=== PATIENT | male | born 1950 | race Caucasian/White ===

== ENCOUNTER 2019-02-25 12:59 | Emergency (ER) | payer OTHER ==
--- OUTSIDE RECORDS SUMMARY | 2019-02-25 13:02 | XMS REPORT ---
:1950 Author Organization [facility] Address [address] [place] [address] Dr. Tamez [address] [place] [id number] Care Team Providers Name Role Phone Unavailable Unavailable Unavailable Problems This patient has no known problems. Allergies, Adverse Reactions, Alerts This patient has no known allergies or adverse reactions. Medications This patient has no known medications.
--- NOTE | 2019-02-25 13:44 | RAD REPORT ---
EXAM DESCRIPTION: Cam Single View02/25/2019 1:36 pm CLINICAL HISTORY: Shortness of breath COMPARISON: 2017 FINDINGS: 1 centimeter nodular opacity overlies the right lung base. Main lungs appear clear. The heart is normal size IMPRESSION: 1 centimeter nodular opacity overlies the right lung base probably represents calcified costal cartilage. A pulmonary nodule is less likely. It is recommended that the patient have oblique views of the chest for confirmation
--- NOTE | 2019-02-25 13:47 | RAD REPORT ---
EXAM DESCRIPTION: CT - Head Brain Wo Cont - 02/25/2019 1:27 pm CLINICAL HISTORY: Dizziness COMPARISON: 2017 TECHNIQUE: Computed axial tomography of the head was obtained. IV contrast was not requested. All CT scans are performed using dose optimization technique as appropriate and may include automated exposure control or mA/KV adjustment according to patient size. FINDINGS: An intracranial bleed is not seen . The ventricles are normal in caliber. No extra-axial fluid collection is noted. Mild low-density areas within periventricular, deep and subcortical white matter likely represent is chemic changes secondary to small vessel disease. Fluid within the sinuses/ mastoids is not seen. Increased density is present within the left posterior scalp IMPRESSION: Increased density within the left posterior scalp may be related to prior trauma or infl ammation should be correlated clinically. No acute intracranial abnormality is seen. If patient's symptoms persist MRI of the brain would be r ecommended.
[2019-02-25 14:10] LABS: Protime INR 0.89
[2019-02-25 14:12] LABS: Absolute Lymphocytes (CBC) 1.7 K/uL (0.7-4.9); Basophils % 0.5 % (0-1.3); Hematocrit 38.4 % (39.6-49.0); MPV 8.1 fL (7.6-11.3); RBC Red Blood Cell Count 4.25 M/uL (4.33-5.43)
[2019-02-25] MEDS ORDERED: DIAZEPAM 5 MG TABLET ONE (14:19)
[2019-02-25] MEDS ORDERED: MECLIZINE HCL 12.5 MG TAB ONE (14:19)
[2019-02-25 14:28] LABS: ALT/SGPT 24 U/L (12-78); AST/SGOT 13 U/L (15-37); Albumin 3.7 g/dL (3.4-5.0); Alkaline Phosphatase 61 U/L (45-117); BUN Blood Urea Nitrogen 13 mg/dL (7-18); Bicarbonate 29 mmol/L (21-32); Bilirubin Direct < 0.1 mg/dL (0-0.2); Bilirubin Total 0.4 mg/dL (0.2-1.0); Glucose Level 93 mg/dL (74-106); NT PRO-BNP 40 pg/mL (<125); Potassium 3.9 mmol/L (3.5-5.1); Protein, Total 7.5 g/dL (6.4-8.2); Sodium Level 140 mmol/L (136-145); Troponin (Emerg Dept Use Only) < 0.02 ng/mL (0.0-0.045)
[2019-02-25] MEDS ORDERED: LORazepam 2 MG/ML VIAL ONE (16:41)
--- NOTE | 2019-02-25 18:17 | RAD REPORT ---
EXAM DESCRIPTION: MRI - MRA Head Wo Cont - 02/25/2019 5:59 pm CLINICAL HISTORY: CVA, dizziness COMPARISON: CT head same date, MRI brain same date TECHNIQUE: Axial and coronal 3D [id number] image acquisition was performed. 3D rotational images were generated with source and reconstruction images reviewed. Horizontal and vertical axis rotation al views generated using MIP protocol. FINDINGS: Right vertebral artery is dominant. Distal vertebral arteries and basilar artery show no s tenosis or significant finding. Significant stenosis seen at several sites within the bilateral poste rior cerebral artery distributions. Right P1 segment of the posterior cerebral artery is absent or ve ry small. Patient has a large right posterior communicating artery. Bilateral M2/ M3 branch atheroscl erotic changes are present with luminal narrowing. There is significant atherosclerotic change in the distal anterior cerebral arteries. From skullbase determination the internal carotid artery show no significant stenosis or atherosclerotic change. No aneurysm or vascular malformation. Major venous sinuses are patent. IMPRESSION: Significant atherosclerotic changes with luminal narrowing in the peripheral branches of the anterior, middle and posterior cerebral arteries. Basilar artery and internal carotid arteries show no significant atherosclerotic change.
--- NOTE | 2019-02-25 18:20 | RAD REPORT ---
EXAM DESCRIPTION: MRI - Brain W/Wo Cont - 02/25/2019 5:59 pm CLINICAL HISTORY: Dizziness, weakness, CVA COMPARISON: CT head same date TECHNIQUE: Sagittal and axial T1-weighted images were obtained. Axial PD/heavily T2-weighted and T2- FLAIR images were obtained along with axial DWI/ADC mapping sequences. Coronal heavily T2 weighted s equence obtained. Axial and coronal post-contrast T1-weighted images were also obtained. A 20 ml Mul tihance contrast following utilized. FINDINGS: No intracranial hemorrhage, mass or acute infarction. There is no edema or shift of midli ne structures. No extra-axial fluid collections. Owens-matter/white matter junction is preserved. Sig nal voids are seen as a normal finding in the major intracranial vessels. Scattered chronic ischemic changes are seen in the cerebral white matter. Atrophy changes are minimal. Ventricles are normal. No globe or orbital content abnormality. No sella or supra sella abnormality. Post-contrast images show normal enhancement. No dural thickening. Mastoid air cells and paranasal sinuses are clear. IMPRESSION: No infarction or other acute intracranial finding. Chronic ischemic changes are present with minimal atrophy. No acute intracranial finding.
--- NOTE | 2019-02-25 18:22 | RAD REPORT ---
EXAM DESCRIPTION: MRI - MRA Neck W/Wo Cont - 02/25/2019 5:58 pm CLINICAL HISTORY: Weakness, dizziness, CVA TECHNIQUE: MR angiography of the cervical vasculature performed. Coronal imaging plane acquisition u tilized. A MultiHance contrast volume was utilized. Coronal reformatted images were generated and re viewed. Vertical axis 3D rotational projections obtained using maximum intensity projection protocol. A 20 milliliter MultiHance contrast volume was utilized. FINDINGS: Aortic arch is 3 vessel configuration. There is substantial motion through this region but no gross origins stenosis seen. Vertebral artery origin on the right is normal. Tortuosity at the le ft vertebral artery origin 11 sestamibi. No common carotid artery stenosis, dissection or acute finding seen. The bilateral internal carotid a rtery's also without dissection, stenosis or acute finding. No aneurysm or vascular malformation. Rig ht vertebral artery is dominant. No acute vertebral artery findings. IMPRESSION: Negative MRA neck examination for acute or significant finding.
--- NOTE | 2019-02-25 18:25 | ER ---
Nurse's Notes [facility] Name: Ramana Hess Age: 69 yrs Sex: Male : 1950 Arrival Date: 02/25/2019 Time: 13:01 Bed 13 Private MD: Diagnosis: Dizziness and giddiness;Other peripheral vertigo, bilateral Presentation: 02/25 13:15 Presenting complaint: states: Intermittent dizziness that began February 05. Patient ss had an episode this morning of dizziness that also made him feel off balance. Sent by [place] [facility] for evaluation and possible transfer to [facility]. Transition of care: patient was not received from another setting of care. Risk Assessment: Do you want to hurt yourself or someone else? Patient reports no desire to harm self or others. Initial Sepsis Screen: Does the patient meet any 2 criteria? No. Patient's initial sepsis screen is negative. Does the patient have a suspected source of infection? No. Patient's initial sepsis screen is negative. Care prior to arrival: None. 13:15 Method Of Arrival: Wheelchair ss 13:15 Acuity: AMNA 3 ss Historical: - Allergies: 13:41 Stadol; ss - Home Meds: 13:30 aripiprazole 10 mg Oral tab 1 tab once daily [Active]; bisoprolol-hydrochlorothiazide rb1 2.5-6.25 mg Oral tab 1 tab once daily [Active]; buspirone 10 mg Oral tab 1 tab 3 times per day [Active]; etodolac 400 mg Oral tab 1 tab BID PRN [Active]; fenofibrate 145 mg Oral 1 cap once daily [Active]; gabapentin 600 mg Oral tab 2 tab 3 times per day [Active]; Levemir 100 unit/mL subcutaneous soln 25 unit daily [Active]; lisinopril 40 mg Oral tab 1 tab once daily [Active]; metformin 1,000 mg Oral tab 1 tab 2 times per day [Active]; Movantik 25 mg Oral tab 1 tab once daily [Active]; oxycodone 20 mg Oral tab 1 tab three times a day [Active]; tizanidine 4 mg Oral tab 1 tab twice a day [Active]; trazodone 100 mg Oral tab 2 tabs nightly [Active]; venlafaxine 150 mg Oral tr24 1 tab twice a day [Active]; - PMHx: 13:41 CAD; Arthritis; Depression; High Cholesterol; TIA; Seizures; PERIPHERAL NEUROPATHY; ss Hypertension; Hyperlipidemia; Diabetes - IDDM; 13:30 CADDO; rb1 - PSHx: 13:41 Knee surgery; deviated septum; Tonsillectomy; Adenoids; Prostate CA; elbow surg; eye sx;ss - Immunization history:: Adult Immunizations up to date. - Social history:: Smoking status: Patient/guardian denies using tobacco. - Ebola Screening: : Patient denies exposure to infectious person Patient denies travel to an Ebola-affected area in the 21 days before illness onset. Screenin:30 Abuse screen: Denies threats or abuse. Nutritional screening: No deficits noted. rb1 Tuberculosis screening: No symptoms or risk factors identified. Fall Risk No fall in past 12 months (0 pts). Secondary diagnosis (15 points) impaired mobility, No IV (0 pts). Ambulatory Aid- Crutches/Cane/Walker (15 pts). Gait- Impaired (20 pts.). Mental Status- Oriented to own ability (0 pts). Total Zhao Fall Scale indicates High Risk Score (45 or more points). Fall prevention measures have been instituted. Side Rails Up X 2 Placed Close to Nursing Station 1:1 Attendant Assigned Frequent Obs/Assessments Occuring Family Present and informed to notify staff if the need to leave the bedside As available patient and family educated on Fall Prevention Program and Strategies. Assessment: 13:30 General: Appears in no apparent distress. comfortable, Behavior is calm, cooperative. rb1 Neuro: Level of Consciousness is awake, alert, obeys commands, Oriented to person, place, time, situation, Reports dizziness. Cardiovascular: Capillary refill < 3 seconds is brisk in bilateral fingers. Respiratory: Airway is patent Respiratory effort is even, unlabored, Respiratory pattern is regular, symmetrical. GI: Reports nausea. : No signs and/or symptoms were reported regarding the genitourinary system. Derm: Skin is pink, warm \T\ dry. Musculoskeletal: Range of motion: intact in all extremities, Ambulates with cane. 13:30 Pain: Denies pain. rb1 14:26 Reassessment: Patient appears in no apparent distress at this time. No changes from rb1 previously documented assessment. Family and friend at bedside. 15:00 Reassessment: Patient appears in no apparent distress at this time. Patient and/or rb1 family updated on plan of care and expected duration. Pain level reassessed. Patient is alert, oriented x 3, equal unlabored respirations, skin warm/dry/pink. gave pt. a urinal Patient denies pain at this time. 16:00 Reassessment: Patient appears in no apparent distress at this time. No changes from rb1 previously documented assessment. Family at bedside. 16:50 Reassessment: Patient appears in no apparent distress at this time. Patient and/or rb1 family updated on plan of care and expected duration. Pain level reassessed. Patient is alert, oriented x 3, equal unlabored respirations, skin warm/dry/pink. Patient denies pain at this time. 18:00 Reassessment: Pt. is off unit for testing at this time. rb1 18:50 Reassessment: Patient appears in no apparent distress at this time. Patient and/or rb1 family updated on plan of care and expected duration. Pain level reassessed. Patient is alert, oriented x 3, equal unlabored respirations, skin warm/dry/pink. at bedside. Patient denies pain at this time. Vital Signs: 13:02 BP 130 / 46; Pulse 53; Resp 14; Pulse Ox 94% on R/A; rb1 13:15 BP 125 / 52; Pulse 48; Resp 10; Pulse Ox 91% on R/A; rb1 13:41 Weight 112.94 kg; Height 6 ft. 5 in. (195.58 cm); ss 14:00 BP 126 / 61; Pulse 50; Resp 15; Temp 98.4; Pulse Ox 97% on R/A; Pain 0/10; rb1 15:00 BP 147 / 66; Pulse 49; Resp 12; Temp 98.1(O); Pulse Ox 94% on R/A; Pain 0/10; rb1 16:00 BP 129 / 84; Pulse 51; Resp 17; Temp 98.2(O); Pulse Ox 95% on R/A; Pain 0/10; rb1 17:00 rb1 18:10 BP 145 / 65; Pulse 44; Resp 13; Pulse Ox 95% on R/A; Pain 0/10; rb1 18:42 BP 155 / 68; Pulse 53; Resp 17; Pulse Ox 94% on R/A; Pain 0/10; rb1 13:41 Body Mass Index 29.53 (112.94 kg, 195.58 cm) ss 17:00 Pt. is in MRI rb1 ED Course: 13:01 Patient arrived in ED. hj 13:04 Hector Hercules MD is Attending Physician. kdr 13:04 EKG done, by entry level automotive technician. reviewed by Hector Hercules MD. sm3 13:15 Arm band placed on right wrist. ss 13:30 CT Head Brain wo Cont In Process Unspecified. EDMS 13:30 Patient has correct armband on for positive identification. Bed in low position. Call rb1 light in reach. Side rails up X2. campus monitor on. Pulse ox on. NIBP on. Warm blanket given. 13:31 X-ray completed. Patient tolerated procedure well. Patient moved to radiology via stretcher. Patient moved back from radiology. 13:33 Evelin Rowland, RN is Primary Nurse. rb1 13:36 XRAY Chest (1 view) In Process Unspecified. EDMS 13:38 Triage completed. ss 13:50 Inserted saline lock: 22 gauge in right antecubital area, using aseptic technique. rb1 Blood collected. 16:54 Patient moved to MRI via stretcher. em2 17:54 MRA Head Wo Cont In Process Unspecified. EDMS 17:54 MRA Neck W/Wo Cont In Process Unspecified. EDMS 17:55 Brain W/Wo Cont In Process Unspecified. EDMS 19:27 No provider procedures requiring assistance completed. IV discontinued, intact, rb1 bleeding controlled, No redness/swelling at site. Pressure dressing applied. Administered Medications: 14:20 Drug: Meclizine 25 mg Route: PO; rb1 14:20 Drug: Valium 5 mg Route: PO; rb1 Outcome: 18:23 Discharge ordered by . kdr 19:27 Patient left the ED. rb1 19:27 Discharged to home via wheelchair, with family. rb1 19:27 Condition: stable 19:27 Discharge instructions given to patient, Instructed on discharge instructions, follow up and referral plans. medication usage, Demonstrated understanding of instructions, follow-up care, medications, Prescriptions given X 1. Signatures: Dispatcher [employer] EDMS Hector Hercules MD MD kdr Mirian Bazan Daniela Watters RN RN Bandar Coughlin em2 Jose Baron RN RN Evelin Rowland, RN RN rb1 Naomi Coughlin sm3 Corrections: (The following items were deleted from the chart) 18:41 17:00 BP 145 / 65; Pulse 44bpm; Resp 13bpm; Pulse Ox 95% RA; Pain 0/10; rb1 rb1 18:42 18:00 BP 155 / 68; Pulse 53bpm; Resp 17bpm; Pulse Ox 94% RA; Pain 0/10; rb1 rb1 20:03 17:00 Reassessment: Patient appears in no apparent distress at this time. Patient rb1 and/or family updated on plan of care and expected duration. Pain level reassessed. Patient is alert, oriented x 3, equal unlabored respirations, skin warm/dry/pink. Patient denies pain at this time. rb1
--- NOTE | 2019-02-25 18:25 | EDPHYS ---
Physician Documentation [facility] Name: Ramana Hess Age: 69 yrs Sex: Male : 1950 Arrival Date: 02/25/2019 Time: 13:01 Bed 13 Private MD: ED Physician Hector Hercules HPI: 02/25 14:42 This 69 yrs old Male presents to ER via Wheelchair with complaints of kdr Dizziness. 14:42 The patient presents with dizziness, feeling off balance, vertigo. Onset: The kdr symptoms/episode began/occurred The patient has been having intermittent s/s for 3-4 months. Recently, it has been worse and this morning at 04:30 it worsened again. He has not had s/s this persistent or severe prior. He has had work-ups recently for possible CVA. Context: occurred at home, occurred while the patient was at rest. Modifying factors: The symptoms are alleviated by holding head still, the symptoms are aggravated by movement of head, standing up, changing position. Associated signs and symptoms: Pertinent positives: ataxia, nausea, Pertinent negatives: abdominal pain, blurred vision, confusion, focal weakness, numbness, palpitations, , seizure, shortness of breath, syncope, tingling, vomiting. Severity of symptoms: At their worst the symptoms were moderate in the emergency department the symptoms have improved mildly. Patient's baseline: Neuro: alert and fully oriented, Motor: no deficits. The patient has not experienced similar symptoms in the past, Not as bad as today. The patient has not recently seen a physician. Historical: - Allergies: 13:41 Stadol; - Home Meds: 13:30 aripiprazole 10 mg Oral tab 1 tab once daily [Active]; bisoprolol-hydrochlorothiazide rb1 2.5-6.25 mg Oral tab 1 tab once daily [Active]; buspirone 10 mg Oral tab 1 tab 3 times per day [Active]; etodolac 400 mg Oral tab 1 tab BID PRN [Active]; fenofibrate 145 mg Oral 1 cap once daily [Active]; gabapentin 600 mg Oral tab 2 tab 3 times per day [Active]; Levemir 100 unit/mL subcutaneous soln 25 unit daily [Active]; lisinopril 40 mg Oral tab 1 tab once daily [Active]; metformin 1,000 mg Oral tab 1 tab 2 times per day [Active]; Movantik 25 mg Oral tab 1 tab once daily [Active]; oxycodone 20 mg Oral tab 1 tab three times a day [Active]; tizanidine 4 mg Oral tab 1 tab twice a day [Active]; trazodone 100 mg Oral tab 2 tabs nightly [Active]; venlafaxine 150 mg Oral tr24 1 tab twice a day [Active]; - PMHx: 13:41 CAD; Arthritis; Depression; High Cholesterol; TIA; Seizures; PERIPHERAL NEUROPATHY; ss Hypertension; Hyperlipidemia; Diabetes - IDDM; 13:30 [place]; rb1 - PSHx: 13:41 Knee surgery; deviated septum; Tonsillectomy; Adenoids; Prostate CA; elbow surg; eye sx;ss - Immunization history:: Adult Immunizations up to date. - Social history:: Smoking status: Patient/guardian denies using tobacco. - Ebola Screening: : Patient denies exposure to infectious person Patient denies travel to an Ebola-affected area in the 21 days before illness onset. ROS: 14:42 Constitutional: Negative for fever, chills, and weight loss, Eyes: Negative for injury, kdr pain, redness, and discharge, ENT: Negative for injury, pain, and discharge, Neck: Negative for injury, pain, and swelling, Cardiovascular: Negative for chest pain, palpitations, and edema, Respiratory: Negative for shortness of breath, cough, wheezing, and pleuritic chest pain, Abdomen/GI: Negative for abdominal pain, nausea, vomiting, diarrhea, and constipation, Back: Negative for injury and pain, : Negative for injury, bleeding, discharge, and swelling, MS/Extremity: Negative for injury and deformity, Skin: Negative for injury, rash, and discoloration, Psych: Negative for depression, anxiety, suicide ideation, homicidal ideation, and hallucinations, Allergy/Immunology: Negative for hives, rash, and allergies, Endocrine: Negative for neck swelling, polydipsia, polyuria, polyphagia, and marked weight changes, Hematologic/Lymphatic: Negative for swollen nodes, abnormal bleeding, and unusual bruising. 14:42 Neuro: Positive for dizziness, Negative for loss of consciousness, numbness, seizure activity, speech changes, syncope, near syncope, tremor, visual changes, weakness. Exam: 14:42 Constitutional: This is a well developed, well nourished patient who is awake, alert, kdr and in no acute distress. Head/Face: Normocephalic, atraumatic. Eyes: Pupils equal round and reactive to light, extra-ocular motions intact. Lids and lashes normal. Conjunctiva and sclera are non-icteric and not injected. Cornea within normal limits. Periorbital areas with no swelling, redness, or edema. Neck: Trachea midline, no thyromegaly or masses palpated, and no cervical lymphadenopathy. Supple, full range of motion without nuchal rigidity, or vertebral point tenderness. No Meningismus. Chest/axilla: Normal chest wall appearance and motion. Nontender with no deformity. No lesions are appreciated. Cardiovascular: Regular rate and rhythm with a normal S1 and S2. No gallops, murmurs, or rubs. Normal PMI, no JVD. No pulse deficits. Respiratory: Lungs have equal breath sounds bilaterally, clear to auscultation and percussion. No rales, rhonchi or wheezes noted. No increased work of breathing, no retractions or nasal flaring. Abdomen/GI: Soft, non-tender, with normal bowel sounds. No distension or tympany. No guarding or rebound. No evidence of tenderness throughout. Back: No spinal tenderness. No costovertebral tenderness. Full range of motion. Skin: Warm, dry with normal turgor. Normal color with no rashes, no lesions, and no evidence of cellulitis. MS/ Extremity: Pulses equal, no cyanosis. Neurovascular intact. Full, normal range of motion. Psych: Awake, alert, with orientation to person, place and time. Behavior, mood, and affect are within normal limits. 14:42 Neuro: Orientation: is normal, Mentation: is normal, Memory: is normal, appropriate for stated age, Cranial nerves: is grossly normal based on the patient's age, Cerebellar function: no acute changes, Motor: is normal, Sensation: is normal. Vital Signs: 13:02 BP 130 / 46; Pulse 53; Resp 14; Pulse Ox 94% on R/A; rb1 13:15 BP 125 / 52; Pulse 48; Resp 10; Pulse Ox 91% on R/A; rb1 13:41 Weight 112.94 kg; Height 6 ft. 5 in. (195.58 cm); ss 14:00 BP 126 / 61; Pulse 50; Resp 15; Temp 98.4; Pulse Ox 97% on R/A; Pain 0/10; rb1 15:00 BP 147 / 66; Pulse 49; Resp 12; Temp 98.1(O); Pulse Ox 94% on R/A; Pain 0/10; rb1 16:00 BP 129 / 84; Pulse 51; Resp 17; Temp 98.2(O); Pulse Ox 95% on R/A; Pain 0/10; rb1 17:00 rb1 18:10 BP 145 / 65; Pulse 44; Resp 13; Pulse Ox 95% on R/A; Pain 0/10; rb1 18:42 BP 155 / 68; Pulse 53; Resp 17; Pulse Ox 94% on R/A; Pain 0/10; rb1 13:41 Body Mass Index 29.53 (112.94 kg, 195.58 cm) ss 17:00 Pt. is in MRI rb1 MDM: 14:42 Data reviewed: vital signs, nurses notes. kdr 18:23 Patient medically screened. kdr 02/25 13:08 Order name: Basic Metabolic Panel; Complete Time: 14:41 kdr 02/25 13:08 Order name: CBC with Diff; Complete Time: 14:41 kdr 02/25 13:08 Order name: LFT's; Complete Time: 14:41 kdr 02/25 13:08 Order name: Magnesium; Complete Time: 14:41 kdr 02/25 13:08 Order name: NT PRO-BNP; Complete Time: 14:41 kdr 02/25 13:08 Order name: PT-INR; Complete Time: 14:41 kdr 02/25 13:08 Order name: Troponin (emerg Dept Use Only); Complete Time: 14:41 kdr 02/25 13:08 Order name: XRAY Chest (1 view); Complete Time: 13:52 kdr 02/25 13:08 Order name: CT Head Brain wo Cont; Complete Time: 13:52 kdr 02/25 16:27 Order name: MRA Head Wo Cont; Complete Time: 18:20 EDMS 02/25 16:29 Order name: MRA Neck W/Wo Cont EDMS 02/25 16:29 Order name: Brain W/Wo Cont; Complete Time: 18:20 EDMS 02/25 13:02 Order name: EKG; Complete Time: 13:04 ss 08/06 13:02 Order name: EKG - Nurse/Tech; Complete Time: 15:50 ss 02/25 13:08 Order name: Cardiac monitoring; Complete Time: 14:03 kdr 02/25 13:08 Order name: IV Saline Lock; Complete Time: 14:03 kdr 02/25 13:08 Order name: Labs collected and sent; Complete Time: 14:03 kdr 02/25 13:08 Order name: O2 Per Protocol; Complete Time: 14:03 kdr 02/25 13:08 Order name: O2 Sat Monitoring; Complete Time: 14:03 kdr Administered Medications: 14:20 Drug: Meclizine 25 mg Route: PO; rb1 14:20 Drug: Valium 5 mg Route: PO; rb1 Disposition: 02/25/19 18:23 Discharged to Home. Impression: Dizziness and giddiness, Other peripheral vertigo, bilateral. - Condition is Stable. - Discharge Instructions: Vertigo, [id number], Dizziness, [id number]. - Prescriptions for Meclizine 25 mg Oral Tablet - take 1 tablet by ORAL route every 8 hours As needed; 30 tablet. - Medication Reconciliation Form, Thank You Letter form. - Follow up: Private Physician; When: 2 - 3 days; Reason: If symptoms return, Further diagnostic work-up, Recheck today's complaints, Continuance of care, Re-evaluation by your physician. - Problem is new. - Symptoms have improved. Signatures: Dispatcher [employer] [facility] Hector Hercules MD MD kdr Daniela Watters RN RN ss Evelin Rowland, RN RN rb1 Corrections: (The following items were deleted from the chart) 16:27 13:54 MR STROKE PROTOCOL+MRI.RAD.BRZ ordered. [facility] 19:27 18:23 02/25/2019 18:23 Discharged to Home. Impression: Dizziness and giddiness; Other rb1 peripheral vertigo, bilateral. Condition is Stable. Forms are Medication Reconciliation Form, Thank You Letter, Antibiotic Education, Prescription Opioid Use. Follow up: Private Physician; When: 2 - 3 days; Reason: If symptoms return, Further diagnostic work-up, Recheck today's complaints, Continuance of care, Re-evaluation by your physician. Problem is new. Symptoms have improved. kdr
[2019-02-25 19:39] VITALS: TEMP 98.2
[2019-02-25 19:42] VITALS: BP 155/68; O2SAT 94
--- NOTE | 2019-02-26 07:14 | EKG ---
Test Date: 2019-02-25 Test Time: 13:01:00 [employer]: HEATHER MEASUREMENT RESULTS: Intervals: Rate: 50 IA: 254 QRSD: 98 QT: 422 QTc: 384 [place]: P: 60 IA: 254 QRS: -5 T: 41 INTERPRETIVE STATEMENTS: Sinus bradycardia with 1st degree AV block Otherwise normal ECG Compared to ECG 04/04/2017 06:20:13 Sinus rhythm no longer present Left ventricular hypertrophy no longer present Electronically Signed On 02-26-19 07:13:49 CDT by Eduardo Howell
== END 2019-02-25 19:27 | disposition home or self-care (01) ==
LOC: ER 12:59
DX: H81.393 Other peripheral vertigo, bilateral (principal); I10 Essential (primary) hypertension; E78.5 Hyperlipidemia, unspecified; E11.9 Type 2 diabetes mellitus without complications; E78.00 Pure hypercholesterolemia, unspecified; F32.9 Major depressive disorder, single episode, unspecified; G40.909 Epilepsy, unspecified, not intractable, without status epilepticus; Z88.5 Allergy status to narcotic agent
CPT/HCPCS: 93005; 85025; 80048; 36415; 83735; 85610; 80076; 84484; 83880; 70450; 71045; 70553; 70544; 70549; 99285; A9577

== ENCOUNTER 2019-03-31 12:06 | Emergency (ER) | payer OTHER ==
--- OUTSIDE RECORDS SUMMARY | 2019-03-31 12:08 | XMS REPORT ---
:1950 [facility] Tamez [address] [place] [id number] Care Team Providers Name Role Phone Unavailable Unavailable Unavailable Problems This patient has no known problems. Allergies, Adverse Reactions, Alerts This patient has no known allergies or adverse reactions. Medications This patient has no known medications.
[2019-03-31] MEDS ORDERED: NA CHLORIDE 0.9% 500 ML ONE (13:15)
[2019-03-31] MEDS ORDERED: FENTANYL CITR 100 MCG/2 ML ONE (13:15)
[2019-03-31 14:06] LABS: Absolute Lymphocytes (CBC) 1.3 K/uL (0.7-4.9); Lymphocytes % 21.4 % (15.3-44.8); MPV 8.2 fL (7.6-11.3); RBC Red Blood Cell Count 4.23 M/uL (4.33-5.43)
--- NOTE | 2019-03-31 14:07 | RAD REPORT ---
EXAM DESCRIPTION: RAD - Chest Single View - 03/31/2019 1:50 pm CLINICAL HISTORY: Othrostatic hypotension Chest pain. COMPARISON: Chest Single View dated 02/25/2019; Chest Single View dated 04/04/2017; Chest Pa And Lat (2 Views) dated 10/22/2015; CHEST SINGLE VIEW dated 03/13/2014 FINDINGS: Portable technique limits examination quality. The lungs are emphysematous but grossly clear. The heart is mildly enlarged in size. No displaced fra ctures. IMPRESSION: No acute intrathoracic process suspected.
[2019-03-31 14:09] LABS: Protime INR 0.93
--- NOTE | 2019-03-31 14:14 | EDPHYS ---
Physician Documentation [facility] Name: Ramana Hess Age: 69 yrs Sex: Male : 1950 Arrival Date: 03/31/2019 Time: 12:09 Bed 26 Private MD: ED Physician Hector Hercules HPI: 03/31 16:03 This 69 yrs old Male presents to ER via Wheelchair with complaints of Low kdr Blood Pressure, Weakness. 16:04 The patient has been light headed and near syncopal for the past month but has become kdr worse in the last two weeks. He had a syncopal episode in th elast 10 days and fell injuring his buttock. He was subsequently seen in clinic and noted to be orthostatic and was take off of his BP meds. Since, he has continued to be light headed and orthostatic. He was sent to the ED for evaluation. Onset: The symptoms/episode began/occurred gradually, 2 week(s) ago. Severity of symptoms: At their worst the symptoms were mild in the emergency department the symptoms are unchanged. The patient has not experienced similar symptoms in the past. The patient has been recently seen by a physician: the patient's primary care provider, earlier today. Historical: - Allergies: 12:24 Stadol; aa5 - Home Meds: 12:51 aspirin 81 mg Oral TbEC 1 tab once daily [Active]; metformin 1,000 mg Oral tab 1 tab ca1 daily [Active]; gabapentin 600 mg Oral tab 2 tab 3 times per day [Active]; trazodone 100 mg Oral tab 2 tabs nightly [Active]; venlafaxine 25 mg oral tab 1 tab daily [Active]; losartan 50 mg oral tab 1 tab 2 times per day [Active]; amlodipine 10 mg tab 1 tab once daily [Active]; tamsulosin 0.4 mg oral cp24 1 cap once daily [Active]; atorvastatin 80 mg oral tab 1 tab once daily [Active]; - PMHx: 12:24 Arthritis; CAD; Depression; Diabetes - IDDM; High Cholesterol; [place]; Hyperlipidemia; aa5 Hypertension; PERIPHERAL NEUROPATHY; Seizures; TIA; - PSHx: 12:51 Knee surgery; deviated septum; Tonsillectomy; Adenoids; Prostate CA; elbow surg; eye sx;ca1 - Immunization history:: Flu vaccine is up to date. - Social history:: Smoking status: Patient/guardian denies using tobacco. - Ebola Screening: : No symptoms or risks identified at this time. ROS: 16:04 Constitutional: Negative for fever, chills, and weight loss - has had general weakness kdr and syncope Eyes: Negative for injury, pain, redness, and discharge, ENT: Negative for injury, pain, and discharge, Neck: Negative for injury, pain, and swelling, Cardiovascular: Negative for chest pain, palpitations, and edema, Respiratory: Negative for shortness of breath, cough, wheezing, and pleuritic chest pain, Abdomen/GI: Negative for abdominal pain, nausea, vomiting, diarrhea, and constipation, Back: Negative for injury and pain, : Negative for injury, bleeding, discharge, and swelling, MS/Extremity: Negative for injury and deformity, Skin: Negative for injury, rash, and discoloration, Psych: Negative for depression, anxiety, suicide ideation, homicidal ideation, and hallucinations, Allergy/Immunology: Negative for hives, rash, and allergies, Endocrine: Negative for neck swelling, polydipsia, polyuria, polyphagia, and marked weight changes, Hematologic/Lymphatic: Negative for swollen nodes, abnormal bleeding, and unusual bruising. 16:04 Neuro: Positive for syncope, near syncope, weakness. Exam: 16:04 Constitutional: This is a well developed, well nourished patient who is awake, alert, kdr and in no acute distress. Head/Face: Normocephalic, atraumatic. Eyes: Pupils equal round and reactive to light, extra-ocular motions intact. Lids and lashes normal. Conjunctiva and sclera are non-icteric and not injected. Cornea within normal limits. Periorbital areas with no swelling, redness, or edema. Neck: Trachea midline, no thyromegaly or masses palpated, and no cervical lymphadenopathy. Supple, full range of motion without nuchal rigidity, or vertebral point tenderness. No Meningismus. Chest/axilla: Normal chest wall appearance and motion. Nontender with no deformity. No lesions are appreciated. Cardiovascular: Regular rate and rhythm with a normal S1 and S2. No gallops, murmurs, or rubs. Normal PMI, no JVD. No pulse deficits. Respiratory: Lungs have equal breath sounds bilaterally, clear to auscultation and percussion. No rales, rhonchi or wheezes noted. No increased work of breathing, no retractions or nasal flaring. Abdomen/GI: Soft, non-tender, with normal bowel sounds. No distension or tympany. No guarding or rebound. No evidence of tenderness throughout. Back: No spinal tenderness. No costovertebral tenderness. Full range of motion. Skin: Warm, dry with normal turgor. Normal color with no rashes, no lesions, and no evidence of cellulitis. MS/ Extremity: Pulses equal, no cyanosis. Neurovascular intact. Full, normal range of motion. Psych: Awake, alert, with orientation to person, place and time. Behavior, mood, and affect are within normal limits. 16:04 Neuro: Orientation: is normal, Mentation: is normal, Memory: is normal, Cranial nerves: grossly normal, Generally weak and light headed. Vital Signs: 12:24 BP 105 / 67; Pulse 83; Resp 16 S; Temp 97.5(TE); Pulse Ox 98% on R/A; Weight 115.67 kg aa5 (R); Height 6 ft. 5 in. (195.58 cm) (R); Pain 5/10; 12:40 BP 141 / 63; Pulse 74; Resp 14 S; Pulse Ox 94% on R/A; ca1 13:06 BP 126 / 65; Pulse 63; Resp 14 S; Pulse Ox 94% on R/A; ca1 13:27 BP 125 / 64 Supine; Pulse 63; Resp 15 S; Pulse Ox 94% on R/A; ca1 13:30 BP 131 / 76 Sitting; Pulse 73; Resp 20 S; Pulse Ox 94% on R/A; ca1 13:32 BP 83 / 53 Standing; Pulse 73; Resp 20 S; Pulse Ox 94% on R/A; ca1 13:59 BP 140 / 73; Pulse 61; Resp 18 S; Pulse Ox 95% on R/A; ca1 15:00 BP 148 / 68; Pulse 60; Resp 15 S; Pulse Ox 95% on R/A; ca1 15:46 BP 131 / 78; Pulse 55; Resp 17 S; Pulse Ox 96% on R/A; ca1 12:24 Body Mass Index 30.24 (115.67 kg, 195.58 cm) aa5 MDM: 14:13 Patient medically screened. kdr 16:04 Data reviewed: vital signs, nurses notes, lab test result(s), radiologic studies. kdr Counseling: I had a detailed discussion with the patient and/or guardian regarding: the historical points, exam findings, and any diagnostic results supporting the discharge/admit diagnosis, lab results, radiology results, the need to transfer to another facility. 03/31 12:50 Order name: Basic Metabolic Panel; Complete Time: 14:56 [facility] 03/31 12:50 Order name: CBC with Diff; Complete Time: 14:56 [facility] 03/31 12:50 Order name: LFT's; Complete Time: 14:56 [facility] 03/31 12:50 Order name: Magnesium; Complete Time: 14:56 [facility] 03/31 12:50 Order name: NT PRO-BNP; Complete Time: 14:56 [facility] 03/31 12:50 Order name: PT-INR; Complete Time: 14:56 [facility] 03/31 12:50 Order name: Troponin (emerg Dept Use Only); Complete Time: 14:56 [facility] 03/31 12:50 Order name: XRAY Chest (1 view); Complete Time: 14:56 [facility] 03/31 12:50 Order name: EKG; Complete Time: 12:52 [facility] 03/31 12:50 Order name: Cardiac monitoring; Complete Time: 12:54 [facility] 03/31 12:50 Order name: EKG - Nurse/Tech; Complete Time: 13:03 [facility] 03/31 12:50 Order name: IV Saline Lock; Complete Time: 13:03 [facility] 03/31 12:50 Order name: Labs collected and sent; Complete Time: 13:03 [facility] 03/31 12:50 Order name: O2 Per Protocol; Complete Time: 12:54 [facility] 03/31 12:50 Order name: O2 Sat Monitoring; Complete Time: 12:54 [facility] 03/31 12:52 Order name: Orthostatic Blood Pressure: Do not stand patient if he is at all kdr symptomatic or w/ clear drop in BP when sitting; Complete Time: 13:37 03/31 13:33 Order name: Labs - recollect needed; Complete Time: 13:45 bd Administered Medications: 13:37 Drug: NS 0.9% 500 ml Route: IV; Rate: bolus; Site: left forearm; ca1 15:57 Follow up: Response: No adverse reaction; IV Status: Completed infusion; IV Intake: ca1 500ml 13:37 Drug: fentaNYL (PF) 25 mcg Route: IVP; Site: left forearm; ca1 14:15 Follow up: Response: No adverse reaction; Pain is decreased; RASS: Alert and Calm (0) ca1 14:16 Drug: [place] (7.5 mg-325 mg) 1 tabs Route: PO; ca1 15:57 Follow up: Response: No adverse reaction; Pain is decreased; RASS: Alert and Calm (0) ca1 Disposition: 03/31/19 14:13 Transfer ordered to [facility]. Diagnosis are Hypotension, Hypotension, unspecified, Weakness, Fracture of coccyx. - Reason for transfer: Higher level of care. - Accepting physician is RI . - Condition is Fair. - Problem is an ongoing problem. - Symptoms are unchanged. Signatures: Dispatcher [employer] EDMS Minoo Hyatt Kevin, MD MD kdr Annette Boykin RN RN aa5 Cookie Stewart RN RN ca1 Corrections: (The following items were deleted from the chart) 15:58 14:13 03/31/2019 14:13 Transfer ordered to [address] Diagnosis is Hypotension; Hypotension, unspecified; Weakness; Fracture of coccyx. Reason for transfer: Higher level of care. Accepting physician is RI . Condition is Fair. Problem is an ongoing problem. Symptoms are unchanged. kdr
--- NOTE | 2019-03-31 14:14 | ER ---
Nurse's Notes [facility] Name: Ramana Hess Age: 69 yrs Sex: Male : 1950 Arrival Date: 03/31/2019 Time: 12:09 Bed 26 Private MD: Diagnosis: Hypotension;Hypotension, unspecified;Weakness;Fracture of coccyx Presentation: 03/31 12:20 Presenting complaint: Patient states: "I went to the DC and they said my blood pressure aa5 was 100/60 but my blood pressure dropped to 70 (systolic) when I stood up". Pt states "they took me off my blood pressure medication about a week and a half ago and my blood pressure is still low". 12:20 Acuity: AMNA 3 aa5 12:45 Transition of care: patient was received from another setting of care (ambulatory [facility] primary care physician practice). Onset of symptoms was March 31, 2019. Risk Assessment: Do you want to hurt yourself or someone else?. Initial Sepsis Screen: Does the patient meet any 2 criteria? No. Patient's initial sepsis screen is negative. Does the patient have a suspected source of infection? No. Patient's initial sepsis screen is negative. Care prior to arrival: None. 12:45 Method Of Arrival: Wheelchair ca1 Historical: - Allergies: 12:24 Stadol; aa5 - Home Meds: 12:51 aspirin 81 mg Oral TbEC 1 tab once daily [Active]; metformin 1,000 mg Oral tab 1 tab ca1 daily [Active]; gabapentin 600 mg Oral tab 2 tab 3 times per day [Active]; trazodone 100 mg Oral tab 2 tabs nightly [Active]; venlafaxine 25 mg oral tab 1 tab daily [Active]; losartan 50 mg oral tab 1 tab 2 times per day [Active]; amlodipine 10 mg tab 1 tab once daily [Active]; tamsulosin 0.4 mg oral cp24 1 cap once daily [Active]; atorvastatin 80 mg oral tab 1 tab once daily [Active]; - PMHx: 12:24 Arthritis; CAD; Depression; Diabetes - IDDM; High Cholesterol; [place]; Hyperlipidemia; aa5 Hypertension; PERIPHERAL NEUROPATHY; Seizures; TIA; - PSHx: 12:51 Knee surgery; deviated septum; Tonsillectomy; Adenoids; Prostate CA; elbow surg; eye sx;ca1 - Immunization history:: Flu vaccine is up to date. - Social history:: Smoking status: Patient/guardian denies using tobacco. - Ebola Screening: : No symptoms or risks identified at this time. Screenin:44 Abuse screen: Denies threats or abuse. Denies injuries from another. Nutritional ca1 screening: No deficits noted. Tuberculosis screening: No symptoms or risk factors identified. Fall Risk Fall in past 12 months (25 points). IV access (20 points). Assessment: 12:40 General: Appears in no apparent distress. comfortable, Behavior is calm, cooperative, ca1 appropriate for age. Pain: Complains of pain in sacrum Pain does not radiate. Pain currently is 5 out of 10 on a pain scale. Pain began 2-3 days ago. Neuro: Level of Consciousness is awake, alert, obeys commands, Oriented to person, place, time, situation, Senior Financial Reporting Analyst are equal bilaterally Moves all extremities. Speech is normal, Facial symmetry appears normal, Reports dizziness. Cardiovascular: Heart tones S1 S2 present Capillary refill < 3 seconds Patient's skin is warm and dry. Pulses are all present. Rhythm is sinus rhythm. Respiratory: Airway is patent Respiratory effort is even, unlabored, Respiratory pattern is regular, symmetrical, Breath sounds are clear bilaterally. GI: Abdomen is flat, non-distended, Bowel sounds present X 4 quads. Abd is soft and non tender X 4 quads. : No deficits noted. No signs and/or symptoms were reported regarding the genitourinary system. EENT: No deficits noted. No signs and/or symptoms were reported regarding the EENT system. Derm: Skin is intact, is healthy with good turgor, Skin is pink, warm \\T\\ dry. Musculoskeletal: Circulation, motion, and sensation intact. Capillary refill < 3 seconds, Range of motion: intact in all extremities. 13:39 Reassessment: Patient appears in no apparent distress at this time. Patient and/or ca1 family updated on plan of care and expected duration. Pain level reassessed. Patient is alert, oriented x 3, equal unlabored respirations, skin warm/dry/pink. 14:30 Reassessment: Patient appears in no apparent distress at this time. Patient and/or ca1 family updated on plan of care and expected duration. Pain level reassessed. Patient is alert, oriented x 3, equal unlabored respirations, skin warm/dry/pink. 15:30 Reassessment: Patient appears in no apparent distress at this time. Patient and/or ca1 family updated on plan of care and expected duration. Pain level reassessed. Patient is alert, oriented x 3, equal unlabored respirations, skin warm/dry/pink. Called report to SAVANNA Valdez at the DC. 15:54 Reassessment: Gave report to EMS LILY Escobedo. ca1 Vital Signs: 12:24 BP 105 / 67; Pulse 83; Resp 16 S; Temp 97.5(TE); Pulse Ox 98% on R/A; Weight 115.67 kg aa5 (R); Height 6 ft. 5 in. (195.58 cm) (R); Pain 5/10; 12:40 BP 141 / 63; Pulse 74; Resp 14 S; Pulse Ox 94% on R/A; ca1 13:06 BP 126 / 65; Pulse 63; Resp 14 S; Pulse Ox 94% on R/A; ca1 13:27 BP 125 / 64 Supine; Pulse 63; Resp 15 S; Pulse Ox 94% on R/A; ca1 13:30 BP 131 / 76 Sitting; Pulse 73; Resp 20 S; Pulse Ox 94% on R/A; ca1 13:32 BP 83 / 53 Standing; Pulse 73; Resp 20 S; Pulse Ox 94% on R/A; ca1 13:59 BP 140 / 73; Pulse 61; Resp 18 S; Pulse Ox 95% on R/A; ca1 15:00 BP 148 / 68; Pulse 60; Resp 15 S; Pulse Ox 95% on R/A; ca1 15:46 BP 131 / 78; Pulse 55; Resp 17 S; Pulse Ox 96% on R/A; ca1 12:24 Body Mass Index 30.24 (115.67 kg, 195.58 cm) aa5 ED Course: 12:09 Patient arrived in ED. rg4 12:20 Hector Hercules MD is Attending Physician. kdr 12:20 Arm band placed on. aa5 12:23 Triage completed. aa5 12:26 Cookie Stewart RN is Primary Nurse. ca1 12:44 Patient has correct armband on for positive identification. Placed in gown. Bed in low ca1 position. Call light in reach. Side rails up X2. quality assurance monitor chassis on. Pulse ox on. NIBP on. Warm blanket given. 12:44 No provider procedures requiring assistance completed. ca1 13:06 Initial lab(s) drawn, by me, sent to lab. Missed attempt(s): 20 gauge in right ca1 antecubital area. Bleeding controlled, band aid applied, catheter tip intact. 13:06 EKG done, by large animal husbandry technician. reviewed by Hector Hercules MD. at1 13:22 Missed attempt(s): 20 gauge in left antecubital area. Bleeding controlled, band aid jp3 applied, catheter tip intact. 13:38 Inserted saline lock: 22 gauge in left forearm, using aseptic technique. ca1 13:48 X-ray completed. Portable x-ray completed in exam room. Patient tolerated procedure mh1 well. 13:53 XRAY Chest (1 view) In Process Unspecified. EDMS 15:55 Patient transferred, IV remains in place. ca1 Administered Medications: 13:37 Drug: NS 0.9% 500 ml Route: IV; Rate: bolus; Site: left forearm; ca1 15:57 Follow up: Response: No adverse reaction; IV Status: Completed infusion; IV Intake: ca1 500ml 13:37 Drug: fentaNYL (PF) 25 mcg Route: IVP; Site: left forearm; ca1 14:15 Follow up: Response: No adverse reaction; Pain is decreased; RASS: Alert and Calm (0) ca1 14:16 Drug: [place] (7.5 mg-325 mg) 1 tabs Route: PO; ca1 15:57 Follow up: Response: No adverse reaction; Pain is decreased; RASS: Alert and Calm (0) ca1 Intake: 15:57 IV: 500ml; Total: 500ml. ca1 Outcome: 14:13 ER care complete, transfer ordered by . kdr 15:55 Transferred by ground EMS to [facility] Transfer form completed. ca1 X-rays sent w/ patient. 15:55 Condition: stable 15:55 Instructed on the need for transfer. 15:58 Patient left the ED. ca1 Signatures: Dispatcher [employer] EDMS Hector Hercules MD MD kdr Adenike Jenkins mh1 Annette Boykin, RN RN aa5 Freya Mansfield, environmental services project manager EKG Tat1 Suzi Turner rg4 Jamey Hawk jp3 Cookie Stewart RN RN ca1 Corrections: (The following items were deleted from the chart) 12:23 12:21 Arm band placed on aa5 aa5 15:46 15:44 BP 131 / 78; Pulse 55bpm; Resp 17bpm; Spontaneous; Pulse Ox 96% RA; ca1 ca1
[2019-03-31] MEDS ORDERED: HYDROCODONE/APAP 7.5/325 MG TAB ONE (14:15)
[2019-03-31 14:21] LABS: ALT/SGPT 14 U/L (12-78); AST/SGOT 11 U/L (15-37); Albumin 3.3 g/dL (3.4-5.0); Alkaline Phosphatase 71 U/L (45-117); BUN Blood Urea Nitrogen 12 mg/dL (7-18); Bicarbonate 26 mmol/L (21-32); Bilirubin Direct 0.1 mg/dL (0-0.2); Bilirubin Total 0.3 mg/dL (0.2-1.0); Glucose Level 112 mg/dL (74-106); Magnesium 1.8 mg/dL (1.8-2.4); NT PRO-BNP 25 pg/mL (<125); Potassium 4.2 mmol/L (3.5-5.1); Protein, Total 7.6 g/dL (6.4-8.2); Sodium Level 139 mmol/L (136-145); Troponin (Emerg Dept Use Only) < 0.02 ng/mL (0.0-0.045)
--- NOTE | 2019-03-31 16:56 | EKG ---
Test Date: 2019-03-31 Test Time: 13:03:40 Fulling Machine Operator: SUNNY/S MEASUREMENT RESULTS: Intervals: Rate: 64 TX: 234 QRSD: 90 QT: 394 QTc: 406 [place]: P: 56 TX: 234 QRS: -34 T: 42 INTERPRETIVE STATEMENTS: Sinus rhythm with 1st degree AV block with premature atrial complexes Left axis deviation Minimal voltage criteria for LVH, may be normal variant Abnormal ECG Compared to ECG 02/25/2019 13:01:00 Atrial premature complex(es) now present Left-axis deviation now present Left ventricular hypertrophy now present Sinus bradycardia no longer present Electronically Signed On 03-31-19 16:55:10 CDT by Erasto Winn
[2019-03-31 18:37] VITALS: BP 131/78; O2SAT 96
[2019-03-31 18:49] VITALS: TEMP 97.5
== END 2019-03-31 15:58 ==
LOC: ER 12:06
DX: I95.9 Hypotension, unspecified (principal); S32.2XXA Fracture of coccyx, initial encounter for closed fracture; W19.XXXA Unspecified fall, initial encounter; Y93.9 Activity, unspecified; Y92.9 Unspecified place or not applicable; Z79.82 Long term (current) use of aspirin; Z85.46 Personal history of malignant neoplasm of prostate; I10 Essential (primary) hypertension; E11.9 Type 2 diabetes mellitus without complications; E78.00 Pure hypercholesterolemia, unspecified; F32.9 Major depressive disorder, single episode, unspecified; G40.909 Epilepsy, unspecified, not intractable, without status epilepticus; Z88.5 Allergy status to narcotic agent
CPT/HCPCS: 96361; 93005; 85025; 80048; 36415; 83735; 85610; 80076; 84484; 83880; 71045; 96374; 99285; J3010

== ENCOUNTER 2019-08-19 12:43 | Emergency (ER) | payer OTHER ==
--- OUTSIDE RECORDS SUMMARY | 2019-08-19 12:45 | XMS REPORT ---
:1950 [facility] Tamez [address] [place] [id number] Care Team Providers Name Role Phone Unavailable Unavailable Unavailable Problems This patient has no known problems. Allergies, Adverse Reactions, Alerts This patient has no known allergies or adverse reactions. Medications This patient has no known medications.
[2019-08-19 15:08] LABS: Absolute Lymphocytes (CBC) 1.7 K/uL (0.7-4.9); Basophils % 0.9 % (0-1.3); Hematocrit 43.2 % (39.6-49.0); Lymphocytes % 33.1 % (15.3-44.8); MPV 8.5 fL (7.6-11.3); RBC Red Blood Cell Count 4.87 M/uL (4.33-5.43)
[2019-08-19 15:10] LABS: Protime INR 0.96
--- NOTE | 2019-08-19 15:16 | RAD REPORT ---
EXAM DESCRIPTION: RAD - Chest Single View - 08/19/2019 2:59 pm CLINICAL HISTORY: COUGH, hypertension COMPARISON: Chest Single View dated 03/31/2019 TECHNIQUE: AP portable chest image was obtained 08/19/2019 2:59 pm . FINDINGS: Lungs are clear. Heart and vasculature are normal. No measurable pleural effusion and no p neumothorax. No acute bony abnormality seen. No acute aortic findings suspected. IMPRESSION: No acute cardiopulmonary process.
[2019-08-19 15:28] LABS: ALT/SGPT 22 U/L (12-78); AST/SGOT 13 U/L (15-37); Albumin 3.9 g/dL (3.4-5.0); Alkaline Phosphatase 71 U/L (45-117); BUN Blood Urea Nitrogen 11 mg/dL (7-18); Bicarbonate 32 mmol/L (21-32); Bilirubin Direct 0.2 mg/dL (0-0.2); Bilirubin Total 0.5 mg/dL (0.2-1.0); Glucose Level 113 mg/dL (74-106); Magnesium 1.9 mg/dL (1.8-2.4); NT PRO-BNP 94 pg/mL (<125); Protein, Total 7.8 g/dL (6.4-8.2); Sodium Level 138 mmol/L (136-145); Troponin (Emerg Dept Use Only) < 0.02 ng/mL (0.0-0.045)
--- NOTE | 2019-08-19 15:52 | EKG ---
Test Date: 2019-08-19 Test Time: 14:40:59 Lithograph Printer: SUNNY MEASUREMENT RESULTS: Intervals: Rate: 75 MO: 226 QRSD: 100 QT: 384 QTc: 428 [place]: P: 44 MO: 226 QRS: -34 T: 66 INTERPRETIVE STATEMENTS: Sinus rhythm with 1st degree AV block with premature atrial complexes Left axis deviation Voltage criteria for left ventricular hypertrophy Abnormal ECG Compared to ECG 03/31/2019 13:03:40 No significant changes Electronically Signed On 08-19-19 15:51:16 EXHAUST TENDER by Erasto Winn
--- NOTE | 2019-08-19 16:18 | EDPHYS ---
Physician Documentation [facility] Name: Ramana Hess Age: 69 yrs Sex: Male : 1950 Arrival Date: 08/19/2019 Time: 12:45 Bed 2 Private MD: ED Physician Berhane Joseph HPI: 08/19 16:15 This 69 yrs old Male presents to ER via Ambulatory with complaints of High fadumo Blood Pressure. 16:15 The patient has elevated blood pressure and discovered this at home. Onset: The fadumo symptoms/episode began/occurred this morning, today. Modifying factors: The symptoms are aggravated by activity, The symptoms are alleviated by remaining still. Associated signs and symptoms: The patient has no apparent associated signs or symptoms. Severity of symptoms: At its worst the blood pressure was mild, in the emergency department the blood pressure is unchanged. The patient has experienced similar episodes in the past, multiple times. Historical: - Allergies: 13:24 Stadol; ca1 - PMHx: 13:24 Arthritis; CAD; Diabetes - NIDDM; Depression; High Cholesterol; [place]; Hyperlipidemia; ca1 Hypertension; PERIPHERAL NEUROPATHY; Seizures; TIA; - PSHx: 13:24 Knee surgery; Tonsillectomy; deviated septum; eye sx; elbow surg; Prostate CA; Adenoids;ca1 - Immunization history:: Adult Immunizations up to date. - Coronavirus screen:: The patient has NOT traveled to [place], [place], or [place] in the past 14 days. The patient has NOT had contact with known/suspected case of Coronavirus?. - Social history:: Smoking status: Patient denies any tobacco usage or history of. - Family history:: not pertinent. - Ebola Screening: : Patient negative for fever greater than or equal to 101.5 degrees Fahrenheit, and additional compatible Ebola Virus Disease symptoms Patient denies exposure to infectious person Patient denies travel to an Ebola-affected area in the 21 days before illness onset No symptoms or risks identified at this time. ROS: 16:15 Constitutional: Negative for fever, chills, and weight loss, Eyes: Negative for injury, fadumo pain, redness, and discharge, ENT: Negative for injury, pain, and discharge, Neck: Negative for injury, pain, and swelling, Cardiovascular: Negative for chest pain, palpitations, and edema, Respiratory: Negative for shortness of breath, cough, wheezing, and pleuritic chest pain, Abdomen/GI: Negative for abdominal pain, nausea, vomiting, diarrhea, and constipation, Back: Negative for injury and pain, : Negative for injury, bleeding, discharge, and swelling, MS/Extremity: Negative for injury and deformity, Skin: Negative for injury, rash, and discoloration, Neuro: Negative for headache, weakness, numbness, tingling, and seizure, Psych: Negative for depression, anxiety, suicide ideation, homicidal ideation, and hallucinations, Allergy/Immunology: Negative for hives, rash, and allergies, Endocrine: Negative for neck swelling, polydipsia, polyuria, polyphagia, and marked weight changes, Hematologic/Lymphatic: Negative for swollen nodes, abnormal bleeding, and unusual bruising. Exam: 16:15 Constitutional: This is a well developed, well nourished patient who is awake, alert, fadumo and in no acute distress. Head/Face: Normocephalic, atraumatic. Eyes: Pupils equal round and reactive to light, extra-ocular motions intact. Lids and lashes normal. Conjunctiva and sclera are non-icteric and not injected. Cornea within normal limits. Periorbital areas with no swelling, redness, or edema. ENT: Nares patent. No nasal discharge, no septal abnormalities noted. Tympanic membranes are normal and external auditory canals are clear. Oropharynx with no redness, swelling, or masses, exudates, or evidence of obstruction, uvula midline. Mucous membranes moist. Neck: Trachea midline, no thyromegaly or masses palpated, and no cervical lymphadenopathy. Supple, full range of motion without nuchal rigidity, or vertebral point tenderness. No Meningismus. Chest/axilla: Normal chest wall appearance and motion. Nontender with no deformity. No lesions are appreciated. Cardiovascular: Regular rate and rhythm with a normal S1 and S2. No gallops, murmurs, or rubs. Normal PMI, no JVD. No pulse deficits. Respiratory: Lungs have equal breath sounds bilaterally, clear to auscultation and percussion. No rales, rhonchi or wheezes noted. No increased work of breathing, no retractions or nasal flaring. Abdomen/GI: Soft, non-tender, with normal bowel sounds. No distension or tympany. No guarding or rebound. No evidence of tenderness throughout. Back: No spinal tenderness. No costovertebral tenderness. Full range of motion. Male : Normal genitalia with no discharge or lesions. Skin: Warm, dry with normal turgor. Normal color with no rashes, no lesions, and no evidence of cellulitis. MS/ Extremity: Pulses equal, no cyanosis. Neurovascular intact. Full, normal range of motion. Neuro: Awake and alert, GCS 15, oriented to person, place, time, and situation. Cranial nerves II-XII grossly intact. Motor strength 5/5 in all extremities. Sensory grossly intact. Cerebellar exam normal. Normal gait. Psych: Awake, alert, with orientation to person, place and time. Behavior, mood, and affect are within normal limits. Vital Signs: 13:24 BP 150 / 83; Pulse 62; Resp 17 S; Temp 98.3(O); Pulse Ox 98% on R/A; Weight 117.93 kg ca1 (R); Height 6 ft. 5 in. (195.58 cm) (R); Pain 0/10; 15:00 BP 162 / 85; Pulse 64; Resp 13; Pulse Ox 96% ; bp 16:26 BP 162 / 82; Pulse 65; Resp 18; Temp 98; Pulse Ox 96% ; bp 13:24 Body Mass Index 30.83 (117.93 kg, 195.58 cm) ca1 MDM: 14:31 Patient medically screened. [facility] 16:16 Data reviewed: vital signs, nurses notes, EMS record, lab test result(s), EKG, [facility] radiologic studies, plain films. 08/19 14:31 Order name: Basic Metabolic Panel; Complete Time: 16:14 [facility] 08/19 14:31 Order name: CBC with Diff; Complete Time: 16:14 [facility] 08/19 14:31 Order name: LFT's; Complete Time: 16:14 [facility] 08/19 14:31 Order name: Magnesium; Complete Time: 16:14 [facility] 08/19 14:31 Order name: NT PRO-BNP; Complete Time: 16:14 [facility] 08/19 14:31 Order name: PT-INR; Complete Time: 16:14 [facility] 08/19 14:31 Order name: Troponin (emerg Dept Use Only); Complete Time: 16:14 [facility] 08/19 14:31 Order name: XRAY Chest (1 view); Complete Time: 16:14 [facility] 08/19 14:31 Order name: EKG; Complete Time: 14:32 [facility] 08/19 14:31 Order name: Cardiac monitoring; Complete Time: 15:02 [facility] 08/19 14:31 Order name: EKG - Nurse/Tech; Complete Time: 15:02 [facility] 08/19 14:31 Order name: IV Saline Lock; Complete Time: 15:02 [facility] 08/19 14:31 Order name: Labs collected and sent; Complete Time: 15:02 [facility] 08/19 14:31 Order name: O2 Per Protocol; Complete Time: 15:02 [facility] 08/19 14:31 Order name: O2 Sat Monitoring; Complete Time: 15:02 [facility] Administered Medications: 16:25 Drug: Norvasc 5 mg Route: PO; bp 16:27 Follow up: Response: No adverse reaction; Medication administered at discharge. bp Disposition: 08/19/19 16:17 Discharged to Home. Impression: Essential (primary) hypertension. - Condition is Stable. - Discharge Instructions: Hypertension, Hypertension, Kjvd-cr-Higg, How to Take Your Blood Pressure, [id number], Managing Your Hypertension. - Prescriptions for losartan 50 mg Oral tablet - take 1 tablet by ORAL route once daily; 30 tablet. Norvasc 5 mg Oral Tablet - take 1 tablet by ORAL route once daily; 30 tablet. - Medication Reconciliation Form, Thank You Letter, Antibiotic Education, Prescription Opioid Use form. - Follow up: Private Physician; When: 2 - 3 days; Reason: Recheck today's complaints, Continuance of care, Re-evaluation by your physician. - Problem is new. - Symptoms have improved. Signatures: Dispatcher [employer] EDBerhane Dunn MD MD cha Peltier, Brian, RN RN bp Cookie Stewart RN RN ca1 Corrections: (The following items were deleted from the chart) 16:27 16:17 08/19/2019 16:17 Discharged to Home. Impression: Essential (primary) bp hypertension. Condition is Stable. Forms are Medication Reconciliation Form, Thank You Letter, Antibiotic Education, Prescription Opioid Use. Follow up: Private Physician; When: 2 - 3 days; Reason: Recheck today's complaints, Continuance of care, Re-evaluation by your physician. Problem is new. Symptoms have improved. fadumo
--- NOTE | 2019-08-19 16:18 | ER ---
Nurse's Notes [facility] Name: Ramana Hess Age: 69 yrs Sex: Male : 1950 Arrival Date: 08/19/2019 Time: 12:45 Bed 2 Private MD: Diagnosis: Essential (primary) hypertension Presentation: 08/19 13:19 Presenting complaint: Patient states: "this morning my BP was at 190s, I took my meds, ca1 it was still on 190s. so I took another 25mg Losartan. It brought my bp down to 183. My BP machine transfers the results so my tele health nurse called me and told me to come to the ER". Reports "a little bit of dizziness" at this time. Transition of care: patient was not received from another setting of care. Onset of symptoms was August 19, 2019. Risk Assessment: Do you want to hurt yourself or someone else? Patient reports no desire to harm self or others. Initial Sepsis Screen: Does the patient meet any 2 criteria? No. Patient's initial sepsis screen is negative. Does the patient have a suspected source of infection? No. Patient's initial sepsis screen is negative. Care prior to arrival: Medication(s) given: losartan. 13:19 Method Of Arrival: Ambulatory ca1 13:19 Acuity: AMNA 3 ca1 Triage Assessment: 14:30 General: Appears in no apparent distress. comfortable, Behavior is cooperative, bp appropriate for age, anxious. Pain: Denies pain. EENT: No deficits noted. Neuro: No deficits noted. Cardiovascular: Rhythm is sinus rhythm. Respiratory: No deficits noted. GI: No signs and/or symptoms were reported involving the gastrointestinal system. : No signs and/or symptoms were reported regarding the genitourinary system. Derm: No deficits noted. Musculoskeletal: No deficits noted. Historical: - Allergies: 13:24 Stadol; ca1 - PMHx: 13:24 Arthritis; CAD; Diabetes - NIDDM; Depression; High Cholesterol; [place]; Hyperlipidemia; ca1 Hypertension; PERIPHERAL NEUROPATHY; Seizures; TIA; - PSHx: 13:24 Knee surgery; Tonsillectomy; deviated septum; eye sx; elbow surg; Prostate CA; Adenoids;ca1 - Immunization history:: Adult Immunizations up to date. - Coronavirus screen:: The patient has NOT traveled to [place], [place], or [place] in the past 14 days. The patient has NOT had contact with known/suspected case of Coronavirus?. - Social history:: Smoking status: Patient denies any tobacco usage or history of. - Family history:: not pertinent. - Ebola Screening: : Patient negative for fever greater than or equal to 101.5 degrees Fahrenheit, and additional compatible Ebola Virus Disease symptoms Patient denies exposure to infectious person Patient denies travel to an Ebola-affected area in the 21 days before illness onset No symptoms or risks identified at this time. Screenin:30 Abuse screen: Denies threats or abuse. Denies injuries from another. Nutritional bp screening: No deficits noted. Tuberculosis screening: No symptoms or risk factors identified. Fall Risk None identified. Assessment: 14:30 General: SEE TRIAGE NOTE. bp Vital Signs: 13:24 BP 150 / 83; Pulse 62; Resp 17 S; Temp 98.3(O); Pulse Ox 98% on R/A; Weight 117.93 kg ca1 (R); Height 6 ft. 5 in. (195.58 cm) (R); Pain 0/10; 15:00 BP 162 / 85; Pulse 64; Resp 13; Pulse Ox 96% ; bp 16:26 BP 162 / 82; Pulse 65; Resp 18; Temp 98; Pulse Ox 96% ; bp 13:24 Body Mass Index 30.83 (117.93 kg, 195.58 cm) ca1 ED Course: 12:45 Patient arrived in ED. mr 13:22 Triage completed. ca1 13:24 Arm band placed on right wrist. ca1 14:30 Berhane Joseph MD is Attending Physician. fadumo 14:30 Patient has correct armband on for positive identification. Bed in low position. Call bp light in reach. Side rails up X2. 14:48 Jeremy Kendrick, SAVANNA is Primary Nurse. bp 15:00 XRAY Chest (1 view) In Process Unspecified. EDMS 15:00 Inserted saline lock: 22 gauge in right forearm, using aseptic technique. Blood bp collected. 16:26 No provider procedures requiring assistance completed. IV discontinued, intact, bp bleeding controlled, No redness/swelling at site. Pressure dressing applied. Administered Medications: 16:25 Drug: Norvasc 5 mg Route: PO; bp 16:27 Follow up: Response: No adverse reaction; Medication administered at discharge. bp Outcome: 16:17 Discharge ordered by MD. thorne 16:26 Discharged to home ambulatory. bp 16:26 Condition: stable 16:26 Discharge instructions given to patient, Instructed on discharge instructions, follow up and referral plans. medication usage, Demonstrated understanding of instructions, follow-up care, medications, Prescriptions given X 2. 16:27 Patient left the ED. bp Signatures: Dispatcher [employer] EDBerhane Dunn MD MD cha Rivera, Mary mr Peltier, Brian, RN RN bp Cookie Setwart RN RN ca1
[2019-08-19] MEDS ORDERED: AMLODIPINE 5 MG TAB ONE (16:29)
[2019-08-19 16:40] VITALS: O2SAT 96
[2019-08-19 16:42] VITALS: BP 162/82; TEMP 98
== END 2019-08-19 16:27 | disposition home or self-care (01) ==
LOC: ER 12:43
DX: I10 Essential (primary) hypertension (principal); Z88.6 Allergy status to analgesic agent; Z85.46 Personal history of malignant neoplasm of prostate
CPT/HCPCS: 36415; 71045; 80048; 80076; 83735; 83880; 84484; 85025; 85610; 93005; 99284

== ENCOUNTER 2019-09-24 10:45 | Observation (INO) | payer OTHER ==
--- OUTSIDE RECORDS SUMMARY | 2019-09-24 10:48 | XMS REPORT ---
:1950 [facility] Address [address] [place] [address] Dr. Tamez [address] [place] [id number] Care Team Providers Name Role Phone Unavailable Unavailable Unavailable Problems This patient has no known problems. Allergies, Adverse Reactions, Alerts This patient has no known allergies or adverse reactions. Medications This patient has no known medications.
--- NOTE | 2019-09-24 11:13 | RAD REPORT ---
EXAM DESCRIPTION: Cam Single View09/24/2019 11:03 am CLINICAL HISTORY: Chest pain COMPARISON: July 2019 FINDINGS: The lungs appear clear of acute infiltrate. The heart is borderline enlarged IMPRESSION: No acute abnormalities displayed
[2019-09-24] MEDS ORDERED: MORPHINE 4 MG/ML SYR ONE ×4 (11:26→15:51)
[2019-09-24 11:31] LABS: Absolute Lymphocytes (CBC) 1.5 K/uL (0.7-4.9); Basophils % 0.6 % (0-1.3); Hematocrit 40.1 % (39.6-49.0); Lymphocytes % 27.2 % (15.3-44.8); MPV 8.2 fL (7.6-11.3); RBC Red Blood Cell Count 4.53 M/uL (4.33-5.43)
[2019-09-24 11:33] LABS: Protime INR 0.94
[2019-09-24 11:49] LABS: ALT/SGPT 20 U/L (12-78); AST/SGOT 13 U/L (15-37); Albumin 3.4 g/dL (3.4-5.0); Alkaline Phosphatase 64 U/L (45-117); BUN Blood Urea Nitrogen 17 mg/dL (7-18); Bicarbonate 26 mmol/L (21-32); Bilirubin Direct < 0.1 mg/dL (0-0.2); Bilirubin Total 0.4 mg/dL (0.2-1.0); Glucose Level 155 mg/dL (74-106); Magnesium 1.8 mg/dL (1.8-2.4); NT PRO-BNP 84 pg/mL (<125); Potassium 3.7 mmol/L (3.5-5.1); Protein, Total 7.6 g/dL (6.4-8.2); Sodium Level 140 mmol/L (136-145); Troponin (Emerg Dept Use Only) 0.02 ng/mL (0.0-0.045)
--- NOTE | 2019-09-24 11:50 | RAD REPORT ---
EXAM DESCRIPTION: CT - Head Brain Wo Cont - 09/24/2019 11:30 am CLINICAL HISTORY: Headache COMPARISON: 2019 TECHNIQUE: Computed axial tomography of the head was obtained. IV contrast was not requested. All CT scans are performed using dose optimization technique as appropriate and may include automated exposure control or mA/KV adjustment according to patient size. FINDINGS: An intracranial bleed is not seen . The ventricles are normal in caliber. No extra-axial fluid collection is noted. Small old lacunar infarct right caudate Mild low-density areas within periventricular, deep and subcortical white matter likely represent isc hemic changes secondary to small vessel disease. Fluid within the sinuses/ mastoids is not seen. IMPRESSION: No acute intracranial abnormality is seen. If patient's symptoms persist MRI of the bra in would be recommended.
--- NOTE | 2019-09-24 12:03 | RAD REPORT ---
EXAM DESCRIPTION: CT - Angio Aorta For Dissection - 09/24/2019 11:36 am CLINICAL HISTORY: . Chest and abdominal pain COMPARISON: 2008 TECHNIQUE: Computed tomography angiography of the chest, abdomen pelvis were obtained. 100 cc Isovue 370 was administered intravenously. Coronal and sagittal reconstruction were performed. MIP 3D reconstruction was performed All CT scans are performed using dose optimization technique as appropriate and may include automated exposure control or mA/KV adjustment according to patient size. FINDINGS: An aortic dissection is not seen. The root of the thoracic aorta is ectatic measuring 4.1 centimeters. The celiac, SMA and ASAEL are patent . A lung consolidation is not present. A pericardial effusion is not seen. A pleural effusion is not n oted. The liver, pancreas adrenals kidneys demonstrate no significant abnormality. 14 millimeter splenic enhancing lesion unchanged likely benign. Mild fatty liver Normal appendix. No evidence of diverticulitis Small gallstones. No gallbladder wall thickening IMPRESSION: Negative for an aortic dissection. Cholelithiasis
--- NOTE | 2019-09-24 13:28 | ER ---
Nurse's Notes [facility] Name: Ramana Hess Age: 69 yrs Sex: Male : 1950 Arrival Date: 09/24/2019 Time: 10:48 Bed 6 Private MD: Diagnosis: Chest pain, unspecified;Left bundle-branch block, unspecified Presentation: 09/23 11:26 Chief complaint: Patient states: L sided chest pain that began approx 1-2 hours ago, ph radiates to L arm, describes as pressure w/ intermittent sharp pains, also reports dizziness, denies SOB, N/V, BP elevated at home 180s systolic, reports hx of AAA. Coronavirus screen: The patient has NOT traveled to a country currently being monitored by the CDC within the last 14 days. The patient has NOT had contact with any known and/or suspected case of coronavirus. Ebola Screen: No symptoms or risks identified at this time. Initial Sepsis Screen: Does the patient meet any 2 criteria? No. Patient's initial sepsis screen is negative. Does the patient have a suspected source of infection? No. Patient's initial sepsis screen is negative. Risk Assessment: Do you want to hurt yourself or someone else? Patient reports no desire to harm self or others. 11:26 Method Of Arrival: Wheelchair ph 11:26 Acuity: AMNA 2 ph Triage Assessment: 11:32 General: Appears in no apparent distress. uncomfortable, well groomed, Behavior is ph calm, cooperative, appropriate for age. Pain: Complains of pain in anterior aspect of left upper chest and left breast Pain radiates to left arm Quality of pain is described as pressure, shooting, Pain began 2 hours ago. Neuro: Level of Consciousness is awake, alert, obeys commands, Oriented to person, place, time, situation, Reports dizziness, headache frontal area. Cardiovascular: Reports chest pain, lightheadedness, Denies nausea, shortness of breath, syncope, vomiting, Capillary refill < 3 seconds in bilateral fingers Patient's skin is warm and dry. Rhythm is irregular Chest pain quality is pressure, sharp, is located in left anterior chest wall radiates to left arm(s) began 2 hours prior to arrival. Respiratory: Airway is patent Respiratory effort is even, unlabored. Derm: Skin is intact, is healthy with good turgor, Skin is pink, warm \T\ dry. Musculoskeletal: Circulation, motion, and sensation intact. Range of motion: intact in all extremities. Historical: - Allergies: 11:39 Stadol; ph - Home Meds: 13:04 captopril 12.5 mg Oral tab daily [Active]; venlafaxine 37.5 mg oral cp24 1 cap once ph daily [Active]; gabapentin 600 mg Oral tab 2 tab 3 times per day [Active]; aspirin 81 mg Oral TbEC 1 tab once daily [Active]; finasteride 5 mg oral tab 1 tab once daily [Active]; metformin 1,000 mg Oral tab 1 tab daily [Active]; amlodipine 5 mg oral tab 1 tab once daily [Active]; - PMHx: 11:39 Arthritis; CAD; Depression; Diabetes - NIDDM; High Cholesterol; [place]; Hypertension; ph Hyperlipidemia; PERIPHERAL NEUROPATHY; Diabetes - IDDM; Seizures; TIA; - PSHx: 11:39 Knee surgery; Tonsillectomy; deviated septum; eye sx; elbow surg; Prostate CA; Adenoids;ph - Immunization history:: Adult Immunizations unknown. - Social history:: Smoking status: unknown. Screenin:31 Abuse screen: Denies threats or abuse. Denies injuries from another. Nutritional ph screening: No deficits noted. Tuberculosis screening: No symptoms or risk factors identified. Fall Risk None identified. Assessment: 11:42 Reassessment: No changes from previously documented assessment, see triage note. ph 13:00 Reassessment: Patient appears in no apparent distress at this time. Patient and/or ph family updated on plan of care and expected duration. Pain level reassessed. Patient is alert, oriented x 3, equal unlabored respirations, skin warm/dry/pink. 14:00 Reassessment: Patient appears in no apparent distress at this time. Patient and/or ph family updated on plan of care and expected duration. Pain level reassessed. Patient is alert, oriented x 3, equal unlabored respirations, skin warm/dry/pink. 15:00 Reassessment: Patient appears in no apparent distress at this time. Patient and/or ph family updated on plan of care and expected duration. Pain level reassessed. Patient is alert, oriented x 3, equal unlabored respirations, skin warm/dry/pink. Vital Signs: 11:26 BP 149 / 67; Pulse 70; Resp 18; Pulse Ox 99% on R/A; Weight 113.4 kg; Height 6 ft. 5 ph in. (195.58 cm); 11:32 BP 149 / 67; Pulse 70; Resp 18; Pulse Ox 99% on R/A; ph 13:05 BP 142 / 55; Pulse 52; Resp 18; Pulse Ox 96% on R/A; ph 14:00 BP 164 / 68; Pulse 58; Resp 18; Pulse Ox 99% on R/A; ph 15:00 BP 151 / 58; Pulse 52; Resp 18; Pulse Ox 97% on R/A; ph 16:00 BP 141 / 52; Pulse 50; Resp 18; Temp 97.9; Pulse Ox 97% on R/A; ph 11:26 Body Mass Index 29.65 (113.40 kg, 195.58 cm) ph ED Course: 10:48 Patient arrived in ED. mr 10:56 Antoinette Gaming, RN is Primary Nurse. ph 10:57 EKG done, by mri special procedures technologist. reviewed by Hector Hercules MD. at1 11:01 Maria Dolores Carter FNP-C is PHCP. snw 11:01 Hector Hercules MD is Attending Physician. snw 11:05 XRAY Chest (1 view) In Process Unspecified. EDMS 11:15 Inserted saline lock: 22 gauge in right forearm, using aseptic technique. Patient ph maintains SpO2 saturation greater than 95% on room air. 11:30 CT Head Brain wo Cont In Process Unspecified. EDMS 11:31 Triage completed. ph 11:34 Arm band placed on Patient placed in an exam room, on a stretcher, on monitor car operator, ph on pulse oximetry. 11:35 Patient has correct armband on for positive identification. Placed in gown. Bed in low ph position. Call light in reach. Side rails up X 1. monitoring coordinator on. Pulse ox on. NIBP on. Door closed. Noise minimized. 11:36 CT Aorta for Dissection In Process Unspecified. EDMS 11:53 T\T\S collected, blood band applied to patient. em1 13:05 No provider procedures requiring assistance completed. ph 13:26 Jesus Mcadams MD is Hospitalizing Provider. snw 15:00 Patient admitted, IV remains in place. ph Administered Medications: 11:24 Drug: morphine 4 mg Route: IVP; Site: right antecubital; ph 12:00 Follow up: Response: No adverse reaction; Pain is decreased; RASS: Alert and Calm (0) ph 12:43 Drug: morphine 4 mg Route: IVP; Site: right forearm; ph 18:23 Follow up: Response: No adverse reaction; Pain is decreased ph 14:18 Drug: morphine 4 mg Route: IVP; Site: right antecubital; ph 14:45 Follow up: Response: No adverse reaction; Pain is decreased ph 15:51 Drug: morphine 4 mg Route: IVP; Site: right forearm; em 16:15 Follow up: Response: No adverse reaction; Pain is decreased ph Outcome: 13:26 Decision to Hospitalize by Provider. snw 16:01 Admitted to Tele accompanied by tech, via wheelchair, room 205, with chart, Report em called to SAVANNA Brown 16:01 Condition: good 16:01 Instructed on the need for admit, Demonstrated understanding of instructions. 16:15 Patient left the ED. ph Signatures: Dispatcher [employer] Maria Dolores Kendall, JOURNEYMAN PIPE WELDER-C JOURNEYMAN PIPE WELDER-Csnw Alexis Penelope PradoWojciech, RN Tang Caceres em1 Freya Mansfield, record keeper EKG Tat1 Antoinette Gaming, RN RN ph
--- NOTE | 2019-09-24 13:28 | EDPHYS ---
Physician Documentation [facility] Name: Ramana Hess Age: 69 yrs Sex: Male : 1950 Arrival Date: 09/24/2019 Time: 10:48 Bed 6 Private MD: ED Physician Hector Hercules HPI: 09/23 11:27 This 69 yrs old Male presents to ER via Unassigned with complaints of Chest snw Pain, High Blood Pressure. 11:27 Onset: The symptoms/episode began/occurred suddenly, 1 hour(s) ago, and became snw persistent. Associated signs and symptoms: Pertinent positives: chest pain. The patient has experienced similar episodes in the past. The patient has been recently seen by a physician: the patient's primary care provider, Pt sees [facility], one month ago aortic aneurysm increased to 4.8 cm.. Historical: - Allergies: 11:39 Stadol; ph - Home Meds: 13:04 captopril 12.5 mg Oral tab daily [Active]; venlafaxine 37.5 mg oral cp24 1 cap once ph daily [Active]; gabapentin 600 mg Oral tab 2 tab 3 times per day [Active]; aspirin 81 mg Oral TbEC 1 tab once daily [Active]; finasteride 5 mg oral tab 1 tab once daily [Active]; metformin 1,000 mg Oral tab 1 tab daily [Active]; amlodipine 5 mg oral tab 1 tab once daily [Active]; - PMHx: 11:39 Arthritis; CAD; Depression; Diabetes - NIDDM; High Cholesterol; UPPER SKAGIT; Hypertension; ph Hyperlipidemia; PERIPHERAL NEUROPATHY; Diabetes - IDDM; Seizures; TIA; - PSHx: 11:39 Knee surgery; Tonsillectomy; deviated septum; eye sx; elbow surg; Prostate CA; Adenoids;ph - Immunization history:: Adult Immunizations unknown. - Social history:: Smoking status: unknown. ROS: 11:24 Constitutional: Negative for fever, chills, and weight loss, Eyes: Negative for injury, snw pain, redness, and discharge, ENT: Negative for injury, pain, and discharge, Neck: Negative for injury, pain, and swelling, Respiratory: Negative for shortness of breath, cough, wheezing, and pleuritic chest pain, Abdomen/GI: Negative for abdominal pain, nausea, vomiting, diarrhea, and constipation, Back: Negative for injury and pain, : Negative for injury, bleeding, discharge, and swelling, MS/Extremity: Negative for injury and deformity, Skin: Negative for injury, rash, and discoloration, Neuro: Negative for headache, weakness, numbness, tingling, and seizure, Psych: Negative for depression, anxiety, suicide ideation, homicidal ideation, and hallucinations. 11:24 Cardiovascular: Positive for chest pain, radiation to left arm. Exam: 11:13 Constitutional: This is a well developed, well nourished patient who is awake, alert, snw and in no acute distress. Head/Face: Normocephalic, atraumatic. Eyes: Pupils equal round and reactive to light, extra-ocular motions intact. Lids and lashes normal. Conjunctiva and sclera are non-icteric and not injected. Cornea within normal limits. Periorbital areas with no swelling, redness, or edema. ENT: Nares patent. No nasal discharge, no septal abnormalities noted. Tympanic membranes are normal and external auditory canals are clear. Oropharynx with no redness, swelling, or masses, exudates, or evidence of obstruction, uvula midline. Mucous membranes moist. Neck: Trachea midline, no thyromegaly or masses palpated, and no cervical lymphadenopathy. Supple, full range of motion without nuchal rigidity, or vertebral point tenderness. No Meningismus. Chest/axilla: Normal chest wall appearance and motion. Nontender with no deformity. No lesions are appreciated. Cardiovascular: Regular rate and rhythm with a normal S1 and S2. No gallops, murmurs, or rubs. Normal PMI, no JVD. No pulse deficits. Respiratory: Lungs have equal breath sounds bilaterally, clear to auscultation and percussion. No rales, rhonchi or wheezes noted. No increased work of breathing, no retractions or nasal flaring. Abdomen/GI: Soft, non-tender, with normal bowel sounds. No distension or tympany. No guarding or rebound. No evidence of tenderness throughout. Back: No spinal tenderness. No costovertebral tenderness. Full range of motion. Skin: Warm, dry with normal turgor. Normal color with no rashes, no lesions, and no evidence of cellulitis. MS/ Extremity: Pulses equal, no cyanosis. Neurovascular intact. Full, normal range of motion. Neuro: Awake and alert, GCS 15, oriented to person, place, time, and situation. Cranial nerves II-XII grossly intact. Motor strength 5/5 in all extremities. Sensory grossly intact. Cerebellar exam normal. Normal gait. 11:15 ECG was reviewed by the Attending Physician. snw Vital Signs: 11:26 BP 149 / 67; Pulse 70; Resp 18; Pulse Ox 99% on R/A; Weight 113.4 kg; Height 6 ft. 5 ph in. (195.58 cm); 11:32 BP 149 / 67; Pulse 70; Resp 18; Pulse Ox 99% on R/A; ph 13:05 BP 142 / 55; Pulse 52; Resp 18; Pulse Ox 96% on R/A; ph 14:00 BP 164 / 68; Pulse 58; Resp 18; Pulse Ox 99% on R/A; ph 15:00 BP 151 / 58; Pulse 52; Resp 18; Pulse Ox 97% on R/A; ph 16:00 BP 141 / 52; Pulse 50; Resp 18; Temp 97.9; Pulse Ox 97% on R/A; ph 11:26 Body Mass Index 29.65 (113.40 kg, 195.58 cm) ph MDM: 11:12 Patient medically screened. snw 12:11 Data reviewed: vital signs, nurses notes. Data interpreted: Pulse oximetry: on room air snw is 99 %. Interpretation: normal. Counseling: I had a detailed discussion with the patient and/or guardian regarding: the historical points, exam findings, and any diagnostic results supporting the discharge/admit diagnosis, the presence of at least one elevated blood pressure reading (>120/80) during this emergency department visit, lab results, radiology results. ED course: attempt transfer to [facility]. 13:24 Physician consultation: Jesus Mcadams MD was called at 13:25, was contacted at 13:24, w regarding admission, to the telemetry unit. ED course: No call back from [facility]. Dr. Mcadams contacted for admission for chest pain, LLB. 09/23 10:56 Order name: Basic Metabolic Panel; Complete Time: 11:51 bd 09/23 10:56 Order name: CBC with Diff; Complete Time: 11:38 bd 09/23 10:56 Order name: LFT's; Complete Time: 11:51 bd 09/23 10:56 Order name: Magnesium; Complete Time: 11:51 bd 09/23 10:56 Order name: NT PRO-BNP; Complete Time: 11:51 bd 09/23 10:56 Order name: PT-INR; Complete Time: 11:38 bd 09/23 10:56 Order name: Troponin (emerg Dept Use Only); Complete Time: 11:51 bd 09/23 10:56 Order name: XRAY Chest (1 view); Complete Time: 11:25 bd 09/23 11:08 Order name: CT Head Brain wo Cont; Complete Time: 11:59 snw 09/23 11:08 Order name: CT Aorta for Dissection; Complete Time: 12:09 snw 09/23 11:12 Order name: TS; Complete Time: 12:43 snw 09/23 12:51 Order name: ABO/RH no charge; Complete Time: 12:52 EDMS 09/23 10:56 Order name: EKG; Complete Time: 10:57 bd 09/23 10:56 Order name: Cardiac monitoring; Complete Time: 11:19 bd 09/23 10:56 Order name: EKG - Nurse/Tech; Complete Time: 11:19 bd 09/23 10:56 Order name: IV Saline Lock; Complete Time: 11:19 bd 09/23 10:56 Order name: Labs collected and sent; Complete Time: 11:19 bd 09/23 10:56 Order name: O2 Per Protocol; Complete Time: 11:19 bd 09/23 10:56 Order name: O2 Sat Monitoring; Complete Time: 11:19 bd 09/23 12:13 Order name: Misc. Order: Please document home medications; Complete Time: 12:43 snw Administered Medications: 11:24 Drug: morphine 4 mg Route: IVP; Site: right antecubital; ph 12:00 Follow up: Response: No adverse reaction; Pain is decreased; RASS: Alert and Calm (0) ph 12:43 Drug: morphine 4 mg Route: IVP; Site: right forearm; ph 18:23 Follow up: Response: No adverse reaction; Pain is decreased ph 14:18 Drug: morphine 4 mg Route: IVP; Site: right antecubital; ph 14:45 Follow up: Response: No adverse reaction; Pain is decreased ph 15:51 Drug: morphine 4 mg Route: IVP; Site: right forearm; em 16:15 Follow up: Response: No adverse reaction; Pain is decreased ph Disposition: 16:27 Co-signature as Attending Physician, Hector Hercules MD I agree with the assessment and kdr plan of care. Disposition: 09/24/19 13:26 Hospitalization ordered by Jesus Mcadams for Observation. Preliminary diagnosis are Chest pain, unspecified, Left bundle-branch block, unspecified. - Bed requested for Telemetry/MedSurg (observation). - Status is Observation. ph - Condition is Stable. - Problem is new. - Symptoms are unchanged. Signatures: Dispatcher [employer] EDMS Minoo Hyatt Kevin, MD MD [facility] Maria Dolores Carter, LEATHER BELT MAKER-C LEATHER BELT MAKER-Csnw Wojciech Prado, RN RN em Antoinette Gaming RN RN ph Corrections: (The following items were deleted from the chart) 13:27 13:26 Hospitalization Ordered by Jesus Mcadams MD for Observation. Preliminary diagnosis snw is Chest pain, unspecified. Bed requested for Telemetry/MedSurg (observation). Status is Observation. Condition is Stable. Problem is new. Symptoms are unchanged. snw 15:04 13:27 09/24/2019 13:26 Hospitalization Ordered by Jesus Mcadams MD for Observation. bd Preliminary diagnosis is Chest pain, unspecified; Left bundle-branch block, unspecified. Bed requested for Telemetry/MedSurg (observation). Status is Observation. Condition is Stable. Problem is new. Symptoms are unchanged. snw 16:15 15:04 09/24/2019 13:26 Hospitalization Ordered by Jesus Mcadams MD for Observation. ph Preliminary diagnosis is Chest pain, unspecified; Left bundle-branch block, unspecified. Bed requested for Telemetry/MedSurg (observation). Status is Observation. Condition is Stable. Problem is new. Symptoms are unchanged. bd
--- NOTE | 2019-09-24 15:49 | EKG ---
Test Date: 2019-09-24 Test Time: 10:58:16 Lining Ironer: SUNNY MEASUREMENT RESULTS: Intervals: Rate: 69 HI: 230 QRSD: 146 QT: 426 QTc: 456 [place]: P: 55 HI: 230 QRS: -24 T: 91 INTERPRETIVE STATEMENTS: Sinus rhythm with marked sinus arrhythmia with 1st degree AV block Left bundle branch block Abnormal ECG Compared to ECG 08/19/2019 14:40:59 Left bundle-branch block now present Atrial premature complex(es) no longer present Left-axis deviation no longer present Left ventricular hypertrophy no longer present Electronically Signed On 09-24-19 15:48:34 TIP CEMENTER by Eduardo Howell
[2019-09-24] MEDS ORDERED: ACETAMINOPHEN 500 MG TAB PO PRN (16:03)
[2019-09-24] MEDS: INSULIN -REGULAR HUMAN 50 UNIT/0.5 ML ML SQ SCH ×2 (16:30→20:44)
[2019-09-24] MEDS ORDERED: CAPTOPRIL 25 MG TABLET PO SCH (17:00)
[2019-09-24 17:12] VITALS: BMI 29.6
[2019-09-24] MEDS: NITROGLYCERIN 0.4 MG/TAB SL PRN ×2 (17:36→23:04)
[2019-09-24] MEDS: ENOXAPARIN 40 MG/0.4 ML SQ SCH (17:37)
[2019-09-24] MEDS: GABAPENTIN 400 MG CAP PO SCH (20:42)
[2019-09-24] MEDS: CAPTOPRIL 25 MG TABLET PO SCH (20:42)
[2019-09-24] MEDS: MORPHINE 2 MG/ML SYR IV PRN (20:43)
[2019-09-24] MEDS: METOPROLOL TAR 25 MG TAB PO SCH (20:44)
[2019-09-24] MEDS ORDERED: ATORVASTATIN 40 MG TAB PO SCH (21:00)
[2019-09-24] MEDS ORDERED: GABAPENTIN 300 MG CAP PO SCH (21:00)
--- NOTE | 2019-09-24 23:16 | HP ---
Date of Admission: 09/24/2019 Consultants: Dr. Howell with Cardiology. Chief Complaint: Chest pain. Code Status: Full. Primary Care Physician: At the [facility]. History Of Present Illness: Patient is a 69-year-old male with past medical history of coronary artery disease, status post multiple heart catheterizations , no stents history, history of aortic aneurysm recently at 4.1 cm, hypertension , history of nonepileptic seizures, diabetes mellitus type 2, non-insulin- requiring, BPH, history of prostate cancer, PTSD, and hypercholesterolemia, who comes in with chest pain. Patient has had previous cardiac workup in 2017, cardiac catheterization showed mild coronary artery disease. No stents were placed at that time and again catheterization in middle of 2019 at the [facility], which also showed small vessel disease, not amenable to stenting. Patient states his blood pressure medications have been adjusted recently and he was taken off losartan and his blood pressure has been labile. Patient stated that his chest pain started at rest today while conversing with some friends over food. Patient had sudden onset of substernal chest pain radiating to the left arm, associated with some nausea. No diaphoresis, palpitations, syncope, or vomiting. Patient denies any fever, chills, cough, or sputum production. No ill contacts. Patient's symptoms are constant, moderate, progressively worsening, therefore came into the ER for further evaluation. In the ER, his workup revealed negative cardiac enzymes. White blood cell count was normal. Imaging studies including CT aortic dissection showed no aortic dissection, did find the thoracic aorta measuring 4.1 cm. Also showed mild fatty liver disease , 14 mm splenic enhancing lesions unchanged and likely benign. CT scan of the head was negative for any acute changes and his chest x-ray was clear. Patient was then referred for admission. He did have some relief with morphine in the ER. When seen in the ER, he was awake, alert, and oriented x3, in some mild distress. Past Medical History: Hypertension, coronary artery disease, aortic aneurysm, PTSD, history of prostate cancer, hyperlipidemia, nonepileptic seizures, diabetes mellitus type 2, non-insulin requiring. Surgical History: Deviated septum repair, adenectomy, knee surgery, and bilateral eye surgery. Allergies: TO METAXALONE. Medications: As per medication reconciliation list. Patient takes captopril 12.5 mg daily, venlafaxine 37.5 mg daily, gabapentin 600 mg 2 tabs 3 times a day , aspirin 81 mg daily, ezetimibe 10 mg daily, metformin 1 g b.i.d. amlodipine 5 mg daily. Social History: Patient denies any tobacco use, alcohol use, or illicit drug use. Patient is , independent in his activities of daily living. Family History: Denies any premature coronary artery disease in the family. Review of Systems: Ten-point system reviewed, negative except as per HPI. Physical Examination: Vital Signs: Heart rate is 70, respirations 18, blood pressure 149/67, O2 99% on room air. General: Awake, alert, and oriented x3, in some mild distress. Elderly male, ill-appearing. HEENT: Normocephalic, atraumatic. PERRLA. EOMI. Moist mucous membranes. Oropharynx is clear. Conjunctivae are anicteric. Neck: Supple. No JVD. Trachea midline. CV: S1, S2. Regular rate and rhythm. Peripheral pulses present. Respiratory: Moving air well bilaterally. No wheezing or stridor. No use of accessory muscles. Gastrointestinal: Abdomen is soft, nontender, nondistended. Positive bowel sounds. No guarding or rigidity. Extremities: No clubbing, cyanosis, or edema. No calf tenderness. Neuro: Cranial nerves 2 through 12 intact grossly. No focal neurological deficits. Speech is normal. Skin: No rashes. Normal skin turgor. Psych: Mood is okay. Affect is flat. Insight and judgment are good. Laboratory Data: INR 0.94, sodium 140, potassium 3.7, chloride 107, CO2 of 26, BUN 17, creatinine 0.84, glucose 155, calcium 9.2, magnesium 1.8. Troponin less than 0.02. WBC 5.5, H and H 13.3 and 40.1, platelets 244. Imaging Studies: CT scan of the head shows no acute intracranial abnormality, personally reviewed. Chest x-ray personally reviewed shows no acute abnormalities. CT of aortic dissection shows negative for acute aortic dissection. Does show cholelithiasis, 14 mm splenic enhancing lesion unchanged , likely benign. Mild fatty liver disease. Assessment: A 69-year-old male with, 1. Unstable angina. The patient has had multiple previous heart catheterizations with small vessel disease present. Patient is high risk due to his heart disease, hypertension, hyperlipidemia, age. We will consult Cardiology, start on chest pain guidelines and obtain serial cardiac enzymes. Patient had relief with morphine. We will continue that and nitroglycerin p.r.n. Chest x-ray was clear and CT aortic dissection was negative for any rupture of his aortic aneurysm. [facility]. 2. History of aortic aneurysm 4.1 cm, stable. 3. Mild fatty liver disease. 4. Essential hypertension, stable. We will resume home medications as appropriate. 5. Mixed hyperlipidemia. Continue statin. 6. Posttraumatic stress disorder, stable. Continue SNRI. 7. Diabetes mellitus type 2, non-insulin requiring. We will continue with sliding scale insulin. Monitor blood glucose levels. 8. Neuropathy. Continue gabapentin. Plan: [facility] was contacted by ED to attempt transfer however no response . Admit patient to Med-Surg, [facility] as observation. DIPAK Voice ID: [id number] MTDD
[2019-09-25] MEDS: MORPHINE 2 MG/ML SYR IV PRN ×2 (00:45→11:33)
[2019-09-25] MEDS ORDERED: MORPHINE 2 MG/ML SYR IV ONE (02:59)
[2019-09-25 05:31] LABS: Absolute Lymphocytes (CBC) 1.9 K/uL (0.7-4.9); Basophils % 1.1 % (0-1.3); Hematocrit 40.9 % (39.6-49.0); Lymphocytes % 34.8 % (15.3-44.8); MPV 8.1 fL (7.6-11.3); RBC Red Blood Cell Count 4.56 M/uL (4.33-5.43)
[2019-09-25 05:56] LABS: BUN Blood Urea Nitrogen 11 mg/dL (7-18); Bicarbonate 33 mmol/L (21-32); Glucose Level 117 mg/dL (74-106); HDL Cholesterol 68 mg/dL (40-60); LDL Cholesterol, Calculated 115 (<130); Potassium 4.4 mmol/L (3.5-5.1); Sodium Level 141 mmol/L (136-145)
[2019-09-25] MEDS: INSULIN -REGULAR HUMAN 50 UNIT/0.5 ML ML SQ SCH ×2 (06:58→11:25)
[2019-09-25] MEDS: ENOXAPARIN 40 MG/0.4 ML SQ SCH (07:51)
[2019-09-25] MEDS: CAPTOPRIL 25 MG TABLET PO SCH (07:52)
[2019-09-25] MEDS: GABAPENTIN 400 MG CAP PO SCH ×2 (07:52→13:05)
[2019-09-25 08:07] VITALS: O2SAT 97
[2019-09-25] MEDS ORDERED: HYDRALAZINE HCL 20 MG/ML VIAL IV PRN (08:28)
[2019-09-25] MEDS: METOPROLOL TAR 25 MG TAB PO SCH (08:46)
[2019-09-25] MEDS ORDERED: lisinopriL 20 MG TAB PO SCH (09:00)
[2019-09-25] MEDS ORDERED: EZETIMIBE 10 MG TAB PO SCH (09:00)
[2019-09-25] MEDS ORDERED: VENLAFAXINE HCL 75 MG TABLET PO SCH (09:00)
[2019-09-25] MEDS ORDERED: ASPIRIN EC 81 MG TAB PO SCH (09:00)
[2019-09-25] MEDS ORDERED: FINASTERIDE 5 MG TAB PO SCH (09:00)
--- NOTE | 2019-09-25 09:41 | ECHO ---
HEIGHT: 6 ft 5 in WEIGHT: 250 lb 0 oz DATE OF STUDY: 09/25/[address]: Jesus Mcadams MD 2-DIMENSIONAL: YES M.MODE: YES DOPPLER: YES COLOR FLOW: YES TDS: NO PORTABLE: NO DEFINITY: NO BUBBLE STUDY: NO DIAGNOSIS: CHEST PAIN CARDIAC HISTORY: CATHERIZATION: YES SURGERY: NO PROSTHETIC VALVE: NO PACEMAKER: NO MEASUREMENTS (cm) DIASTOLIC (NORMALS) SYSTOLIC (NORMALS) IVSd 1.2 (0.6-1.2) LA Diam 3.9 (1.9-4.0) LVEF 76% LVIDd 4.9 (3.5-5.7) LVIDs 2.7 (2.0-3.5) %FS 44% LVPWd 1.3 (0.6-1.2) Ao Diam 3.5 (2.0-3.7) 2 DIMENSIONAL ASSESSMENT: RIGHT ATRIUM: NORMAL LEFT ATRIUM: NORMAL RIGHT VENTRICLE: NORMAL LEFT VENTRICLE: NORMAL TRICUSPID VALVE: NORMAL MITRAL VALVE: NORMAL PULMONIC VALVE: NORMAL AORTIC VALVE: NORMAL PERICARDIAL EFFUSION: NONE AORTIC ROOT: NORMAL LEFT VENTRICULAR WALL MOTION: NORMAL DOPPLER/COLOR FLOW: NORMAL COMMENTS: NORMAL 2D ECHOCARDIOGRAM WITH DOPPLER. NO WALL MOTION ABNORMALITY. NO EFFUSION. TECHNOLOGIST: Ulysses ROMAN
[2019-09-25 11:28] VITALS: TEMP 98.9
[2019-09-25] MEDS: NITROGLYCERIN 0.4 MG/TAB SL PRN ×2 (13:30→13:36)
[2019-09-25 13:37] VITALS: BP 116/55
--- NOTE | 2019-09-25 16:45 | EKG ---
Test Date: 2019-09-25 Test Time: 13:40:58 Inside Outside Sales Representative: SUNNY MEASUREMENT RESULTS: Intervals: Rate: 80 VA: 216 QRSD: 144 QT: 420 QTc: 484 [place]: P: 43 VA: 216 QRS: -38 T: 94 INTERPRETIVE STATEMENTS: Sinus rhythm with 1st degree AV block with premature atrial complexes Left axis deviation Left bundle branch block Abnormal ECG Compared to ECG 09/24/2019 10:58:16 Atrial premature complex(es) now present Left-axis deviation now present Sinus arrhythmia no longer present Electronically Signed On 09-25-19 16:44:52 PRESIDENT & CEO by Eduardo Howell
--- NOTE | 2019-09-25 18:59 | CON ---
Date of Consultation: 09/25/2019 Reason For Consultation: [id number] myocardial infarction. History Of Present Illness: Mr. Hess is a 69-year-old white male, has a history of hypertension, de generative joint disease, history of TIA, neuropathy, BPH, depression, history of seizure disorder in the past, diabetes, hypertension, dyslipidemia, and documented coronary artery disease. A heart cat heterization about 3 years ago and 6 months ago showed no focal stenosis in the large vessel, but jairon arently had diffuse small vessel disease. His last catheterization was at the [facility]. He was t reated medically. This time he came in with blood pressures of 186/84 with some chest pain and a tro ponin of 0.66. Denied PND, orthopnea, pedal edema, palpitations, or syncope. Allergies: HE IS ALLERGIC TO STADOL. Review of Systems: Negative. Social History: Negative. Family History: Negative. Medications: At home include; Capoten, finasteride, Neurontin, aspirin, metformin, and amlodipine. His medications are given to him by Dr. Barrow at the [facility]. Physical Examination: General: When I saw him, he was pain free. He was in sinus rhythm with left bundle branch block, ra te of 60. HEENT: Exam was negative. Neck: Supple without any bruit, lymphadenopathy, JVD, or thyromegaly. Chest: Clear to auscultation and percussion. Cardiac: Revealed a regular rhythm and rate without any murmurs, gallops, or rubs. Abdomen: Benign. Extremities: Revealed no clubbing, cyanosis, or edema. Diagnostic Data: EKG showed left bundle-branch block. Chest x-ray was negative. CT angiogram of th e chest was negative. CT of the head was negative. Impression And Plan: 1.Roh-BY-cwtiwqxsr myocardial infarction. EKG showed left bundle-branch block, which is chronic. Edd brock has had issues with bradycardia in the 30s and 40s in the past and the [facility] physicians have sugg ested a pacemaker at one point. He is not a candidate for beta-blockers. I think his biggest proble m is severe uncontrolled hypertension. I would personally add a low-dose diuretic to control his blo od pressure better. Continue the amlodipine. Continue the Capoten; also put him on isosorbide. Ech ocardiogram is pending. I suggested a heart catheterization on Mr. Hess, but since he just had it, we decided to stick with medical therapy for now. If he has further chest pain or further elevation in his troponin, we may change our mind. Patient needs [facility], which is where he prefers to go. His other problems including diabetes and dys lipidemia and neuropathy, are fairly well controlled. The case was discussed with Dr. Mcdaams and the family. ALFA/FELICITAS Voice ID: [id number] Report ID: [id number]
--- NOTE | 2019-09-25 21:55 | P.SSS ---
Patient History Date of Service: 09/25/19 Reason for admission: CHEST PAIN History of Present Illness: GERALDINE IS A FORMER MORBIDLY OBESE GM NOW HAS LOST SIGNIFICANT AMT OF WEIGHT. HE SAW ME I OFFICE A YEAR AGO. WHEN LOCAL NEED HE COMES TO OFFICE FOR PRIMARY CARE. HE GOES TO [facility] FOR HIS CARE ALSO. HE COMES WITH CHEST PAIN, HAS MILD ELEVATION OF TROOPNIN. HE HAD RECENT CATH THAT WAS NEGATIVE IN [facility]. HE WAS ALSO SEEN BY SECURITY POLICE LOCALLY AND HEIS RELEASED TO GO HOME. Allergies butorphanol [From Stadol] Adverse Reaction (Verified 11/02/16 13:41) Shortness of breath metaxalone [From Skelaxin] Adverse Reaction (Verified 11/02/16 13:41) Shortness of breath Home Medications: Metformin ER [Glucophage ER*] 1,000 mg PO DAILY 03/14/14 Venlafaxine HCl [Effexor*] 37.5 mg PO DAILY 03/14/14 Aspirin 81 mg PO DAILY 09/24/19 Captopril [Capoten] 1 tab PO BEDTIME 09/24/19 Ezetimibe [Zetia*] 10 mg PO DAILY 09/24/19 Finasteride [Proscar*] 1 tab PO DAILY 09/24/19 Gabapentin [Gralise] 2 tab PO TID 09/24/19 Amlodipine [Norvasc*] 10 mg PO DAILY #30 tab 09/25/19 Isosorbide Mononitrate [Ismo] 20 mg PO DAILY #30 tablet 09/25/19 hydroCHLOROthiazide [Hydrochlorothiazide*] 12.5 mg PO DAILY #30 cap 09/25/19 - Past Medical/Surgical History Has patient received pneumonia vaccine in the past: Yes Diabetic: Yes -: non-epileptic seizures -: IDDM -: TIA -: Neuropathy -: deviated septum -: PTSd -: AAA -: HTN -: [place] -: CAD -: adenoidectomy -: Knee sx -: polo. Eye surgery -: tonsillectomy -: eye sx - Social History Smoking Status: Former smoker Alcohol use: No CD- Drugs: No Caffeine use: Yes Place of Residence: Home Review of Systems 10-point ROS is otherwise unremarkable General: Weakness Physical Examination - Vital Signs Temperature: 98.9 F Blood Pressure: 116/55 Pulse: 79 Respirations: 18 Pulse Ox (%): 96 - Physical Exam General: Alert, In no apparent distress HEENT: Atraumatic, PERRLA, Mucous membr. moist/pink, EOMI, Sclerae nonicteric Neck: Supple, 2+ carotid pulse no bruit, No LAD, Without JVD or thyroid abnormality Respiratory: Clear to auscultation bilaterally, Normal air movement Cardiovascular: Regular rate/rhythm, Normal S1 S2 Gastrointestinal: Normal bowel sounds, No tenderness Musculoskeletal: No tenderness Integumentary: No rashes Neurological: Normal gait, Normal speech, Normal strength at 5/5 x4 extr, Normal tone, Normal affect Lymphatics: No axilla or inguinal lymphadenopathy - Diagnosis (Problem(s)) (1) Chest pain Status: Acute Plan: CLEARED BY CARD. TO GO HOME. HE WILL NEED VALERA LATER. HE WILLFU WITH DR. WINN. - Disposition Disposition: ROUTINE DISCHARGE Condition: FAIR Patient Discharge Instructions: f/up w PCP in 2-3 days. f/up w electronic components assembler Dr. Winn in 2 weeks. Return to ER for worsening condition. Check BP prior to taking BP meds. Hold for SBP<120 Diet: ADA Activity: Ad melissa
== END 2019-09-25 14:24 | disposition home or self-care (01) ==
LOC: ER 10:45 → ERHOLD 13:54 → 2ND 16:01
PROVIDERS: ADMIT Family Medicine; ATTEND Family Medicine
DX: I25.110 Atherosclerotic heart disease of native coronary artery with unstable angina pectoris (principal); I44.7 Left bundle-branch block, unspecified; E78.2 Mixed hyperlipidemia; I10 Essential (primary) hypertension; E11.9 Type 2 diabetes mellitus without complications; N40.0 Benign prostatic hyperplasia without lower urinary tract symptoms; F43.10 Post-traumatic stress disorder, unspecified; E78.00 Pure hypercholesterolemia, unspecified; K76.0 Fatty (change of) liver, not elsewhere classified
CPT/HCPCS: 93005 ×2; 93306; 85025 ×2; 80048 ×2; 36415; 86900; 83735; 86850; 85610; 80061; 86901; 82947 ×4; 80076; 84484 ×3; 83880; 70450; 71275; 74175; 71045; 94760; 96374; 99285; Q9967; J0360; J1650 ×2; J2270 ×4; G0378 ×3

== ENCOUNTER 2020-03-23 15:43 | Emergency (ER) | payer OTHER ==
--- OUTSIDE RECORDS SUMMARY | 2020-03-23 15:45 | XMS REPORT | Continuity of Care Document ---
:1950 Author Organization [facility] t Address [address] [place] [address] [place] [id number] Care Team Providers Name Role Phone Unavailable Unavailable Unavailable Problems This patient has no known problems. Allergies, Adverse Reactions, Alerts This patient has no known allergies or adverse reactions. Medications This patient has no known medications. Procedures This patient has no known procedures. Results This patient has no known results.
[2020-03-23] MEDS ORDERED: NA CHLORIDE 0.9% 1,000 ML ONE (16:44)
[2020-03-23 16:52] LABS: Absolute Lymphocytes (CBC) 1.3 K/uL (0.7-4.9); Basophils % 0.8 % (0-1.3); Hematocrit 40.4 % (39.6-49.0); Lymphocytes % 24.2 % (15.3-44.8); MPV 8.6 fL (7.6-11.3); RBC Red Blood Cell Count 4.47 M/uL (4.33-5.43)
[2020-03-23 17:13] LABS: ALT/SGPT 23 U/L (12-78); AST/SGOT 14 U/L (15-37); Albumin 2.8 g/dL (3.4-5.0); Alkaline Phosphatase 64 U/L (45-117); BUN Blood Urea Nitrogen 14 mg/dL (7-18); Bicarbonate 30 mmol/L (21-32); Bilirubin Direct < 0.1 mg/dL (0-0.2); Bilirubin Total 0.3 mg/dL (0.2-1.0); Glucose Level 87 mg/dL (74-106); Lipase 52 U/L (73-393); Sodium Level 140 mmol/L (136-145)
--- NOTE | 2020-03-23 17:43 | EDPHYS ---
Physician Documentation [facility] Name: Ramana Hess Age: 70 yrs Sex: Male : 1950 Arrival Date: 03/23/2020 Time: 15:47 Bed 15 Private MD: ED Physician Ke Felipe HPI: 03/23 16:02 This 70 yrs old Male presents to ER via Wheelchair with complaints of Low rn Blood Pressure, Dizziness. 16:02 The patient presents with dizziness, lightheadedness. Onset: The symptoms/episode rn began/occurred 2 day(s) ago. Context: occurred at home, occurred while the patient was at rest. Modifying factors: The symptoms are alleviated by lying down, the symptoms are aggravated by standing up, changing position. Severity of symptoms: At their worst the symptoms were moderate in the emergency department the symptoms have improved. The patient has experienced similar episodes in the past. Reports hx of orthostatic hypotension, was dealing with watery diarrhea all weekend, clear, non-bloody, now resolved, but feels dehydrated and generalized weakness. No chest pain/sob/abd pain/vomiting. No change in medication. Does not feel ill. Historical: - Allergies: 16:02 Stadol; ca1 - PMHx: 16:02 Arthritis; CAD; Depression; Diabetes - IDDM; Diabetes - NIDDM; High Cholesterol; [place]; ca1 Hyperlipidemia; Hypertension; PERIPHERAL NEUROPATHY; Seizures; TIA; - PSHx: 16:02 Knee surgery; Tonsillectomy; deviated septum; eye sx; elbow surg; Prostate CA; Adenoids;ca1 - Immunization history:: Adult Immunizations up to date. - Social history:: Smoking status: Patient/guardian denies using tobacco, the patient reports quitting approximately 50 years ago. - Family history:: not pertinent. - Hospitalizations: : No recent hospitalization is reported. ROS: 16:02 Constitutional: Negative for fever, chills, and weight loss, Eyes: Negative for injury, rn pain, redness, and discharge, Cardiovascular: Negative for chest pain, palpitations, and edema, Respiratory: Negative for shortness of breath, cough, wheezing, and pleuritic chest pain, Abdomen/GI: Negative for abdominal pain, nausea, vomiting, diarrhea, and constipation, MS/Extremity: Negative for injury and deformity, Skin: Negative for injury, rash, and discoloration, Neuro: Negative for headache, numbness, tingling, and seizure. Exam: 16:02 Constitutional: This is a well developed, well nourished patient who is awake, alert, rn and in no acute distress. Head/Face: Normocephalic, atraumatic. Eyes: Pupils equal round and reactive to light, extra-ocular motions intact. Lids and lashes normal. Conjunctiva and sclera are non-icteric and not injected. Cornea within normal limits. Periorbital areas with no swelling, redness, or edema. Cardiovascular: Regular rate and rhythm. No pulse deficits. Respiratory: No increased work of breathing, no retractions or nasal flaring. Abdomen/GI: soft, non-tender, non-distended Skin: Warm, dry MS/ Extremity: Pulses equal, no cyanosis. Neuro: Awake and alert, GCS 15 Vital Signs: 15:58 BP 104 / 57; Pulse 76; Resp 16 S; Temp 97.8(TE); Pulse Ox 96% on R/A; Weight 115.67 kg ca1 (R); Height 6 ft. 5 in. (195.58 cm) (R); 17:21 BP 127 / 63; Pulse 62; Resp 20; Pulse Ox 95% on R/A; jr10 18:17 BP 149 / 77; Pulse 72; Resp 18; Pulse Ox 96% on R/A; jr10 15:58 Body Mass Index 30.24 (115.67 kg, 195.58 cm) ca1 MDM: 15:53 Patient medically screened. rn 17:38 Differential diagnosis: generalized weakness, hypovolemia, idiopathic dizziness, rn orthostatic hypotension. Data reviewed: vital signs, nurses notes, lab test result(s), EKG, and as a result, I will discharge patient. Counseling: I had a detailed discussion with the patient and/or guardian regarding: the historical points, exam findings, and any diagnostic results supporting the discharge/admit diagnosis, lab results, the need for outpatient follow up, to return to the emergency department if symptoms worsen or persist or if there are any questions or concerns that arise at home. Special discussion: I discussed with the patient/guardian in detail that at this point there is no indication for admission to the hospital. It is understood, however, that if the symptoms persist or worsen the patient needs to return immediately for re-evaluation. ED course: Pt feels much better, no dizziness with sitting or standing, BP with standing is 123/70. 03/23 16:02 Order name: Basic Metabolic Panel; Complete Time: 17:33 rn 03/23 16:02 Order name: CBC with Diff; Complete Time: 17:04 rn 03/23 16:02 Order name: Hepatic Function; Complete Time: 17:33 rn 03/23 16:02 Order name: Lipase; Complete Time: 17:33 rn 03/23 16:02 Order name: Procalcitonin rn 03/23 16:02 Order name: IV Saline Lock; Complete Time: 16:45 rn 03/23 16:02 Order name: Labs collected and sent; Complete Time: 16:45 rn 03/23 16:02 Order name: EKG; Complete Time: 16:02 rn 03/23 16:02 Order name: EKG - Nurse/Tech; Complete Time: 17:18 rn Administered Medications: 16:45 Drug: NS 0.9% 1000 ml Route: IV; Rate: 1000 ml; Site: right forearm; jr10 18:09 Follow up: Response: No adverse reaction; IV Status: Completed infusion jr10 17:44 Drug: NS 0.9% 500 ml Route: IV; Rate: bolus; Site: right forearm; iw 18:10 Follow up: Response: No adverse reaction; IV Status: Completed infusion jr10 Disposition: 03/23/20 17:42 Discharged to Home. Impression: Orthostatic hypotension. - Condition is Stable. - Discharge Instructions: Hypotension, Orthostatic Hypotension. - Medication Reconciliation Form, Thank You Letter, Antibiotic Education, Prescription Opioid Use form. - Follow up: Private Physician; When: As needed; Reason: Recheck today's complaints, Re-evaluation by your physician. - Problem is new. - Symptoms have improved. Signatures: Dispatcher [employer] EDMS Oneyda Peter RN RN iw Ke Felipe MD MD rn Acob, Cheryl RN Jennifer Fam RN RN jr10 Corrections: (The following items were deleted from the chart) 18:35 17:42 03/23/2020 17:42 Discharged to Home. Impression: Orthostatic hypotension. jr10 Condition is Stable. Forms are Medication Reconciliation Form, Thank You Letter, Antibiotic Education, Prescription Opioid Use. Follow up: Private Physician; When: As needed; Reason: Recheck today's complaints, Re-evaluation by your physician. Problem is new. Symptoms have improved. rn
--- NOTE | 2020-03-23 17:43 | ER ---
Nurse's Notes [facility] Name: Ramana Hess Age: 70 yrs Sex: Male : 1950 Arrival Date: 03/23/2020 Time: 15:47 Bed 15 Private MD: Diagnosis: Orthostatic hypotension Presentation: 03/23 15:58 Chief complaint: Patient states: BP at 64/40 at 1000 today, BP 74/50 <30 minutes [employer]. ca1 Dizziness upon standing up, feels like passing out after 5 steps. Laying down, denies dizziness. Reports having diarrhea over the weekend, from Sunday evening to Sunday morning yesterday. Coronavirus screen: Client denies travel out of the [place] in the last 14 days. At this time, the client does not indicate any symptoms associated with coronavirus-19. Ebola Screen: Patient negative for fever greater than or equal to 101.5 degrees Fahrenheit, and additional compatible Ebola Virus Disease symptoms Patient denies exposure to infectious person. Patient denies travel to an Ebola-affected area in the 21 days before illness onset. No symptoms or risks identified at this time. Initial Sepsis Screen: Does the patient meet any 2 criteria? No. Patient's initial sepsis screen is negative. Does the patient have a suspected source of infection? No. Patient's initial sepsis screen is negative. Risk Assessment: Do you want to hurt yourself or someone else? Patient reports no desire to harm self or others. Onset of symptoms was March 23, 2020. 15:58 Method Of Arrival: Wheelchair ca1 15:58 Acuity: AMNA 3 ca1 Historical: - Allergies: 16:02 Stadol; ca1 - PMHx: 16:02 Arthritis; CAD; Depression; Diabetes - IDDM; Diabetes - NIDDM; High Cholesterol; [place]; ca1 Hyperlipidemia; Hypertension; PERIPHERAL NEUROPATHY; Seizures; TIA; - PSHx: 16:02 Knee surgery; Tonsillectomy; deviated septum; eye sx; elbow surg; Prostate CA; Adenoids;ca1 - Immunization history:: Adult Immunizations up to date. - Social history:: Smoking status: Patient/guardian denies using tobacco, the patient reports quitting approximately 50 years ago. - Family history:: not pertinent. - Hospitalizations: : No recent hospitalization is reported. Screenin:45 Abuse screen: Denies threats or abuse. Denies injuries from another. Nutritional jr10 screening: No deficits noted. Tuberculosis screening: No symptoms or risk factors identified. Fall Risk IV access (20 points). Assessment: 16:46 General: Appears in no apparent distress. Behavior is calm, cooperative, appropriate jr10 for age. Pain: Denies pain. Neuro: No deficits noted. Level of Consciousness is awake, alert, obeys commands, Oriented to person, place, time, situation, Appropriate for age. Cardiovascular: No deficits noted. Denies chest pain. Cardiovascular: Reports pt reports hx of orthostatic BP, states that his BP was low earlier today "like 60/40, upon arrival pt vitals WNL, pt appear in NAD. Respiratory: No deficits noted. Denies shortness of breath. GI: No deficits noted. No signs and/or symptoms were reported involving the gastrointestinal system. Patient currently denies diarrhea, vomiting. : No deficits noted. No signs and/or symptoms were reported regarding the genitourinary system. EENT: No deficits noted. No signs and/or symptoms were reported regarding the EENT system. Derm: No deficits noted. No signs and/or symptoms reported regarding the dermatologic system. Musculoskeletal: No deficits noted. No signs and/or symptoms reported regarding the musculoskeletal system. Vital Signs: 15:58 BP 104 / 57; Pulse 76; Resp 16 S; Temp 97.8(TE); Pulse Ox 96% on R/A; Weight 115.67 kg ca1 (R); Height 6 ft. 5 in. (195.58 cm) (R); 17:21 BP 127 / 63; Pulse 62; Resp 20; Pulse Ox 95% on R/A; jr10 18:17 BP 149 / 77; Pulse 72; Resp 18; Pulse Ox 96% on R/A; jr10 15:58 Body Mass Index 30.24 (115.67 kg, 195.58 cm) ca1 ED Course: 15:47 Patient arrived in ED. ds1 15:53 Ke Felipe MD is Attending Physician. rn 16:01 Triage completed. ca1 16:02 Arm band placed on right wrist. ca1 16:02 Patient has correct armband on for positive identification. Placed in gown. Bed in low ca1 position. Call light in reach. Side rails up X2. Pulse ox on. NIBP on. Warm blanket given. 16:32 Jennifer Espinoza, RN is Primary Nurse. jr10 16:46 No provider procedures requiring assistance completed. Inserted saline lock: 20 gauge jr10 in right forearm, using aseptic technique. IV is patent, is intact, with fluids infusing freely, with good blood return, Flushed. 18:30 IV discontinued, intact, bleeding controlled, No redness/swelling at site. Pressure jr10 dressing applied. Administered Medications: 16:45 Drug: NS 0.9% 1000 ml Route: IV; Rate: 1000 ml; Site: right forearm; jr10 18:09 Follow up: Response: No adverse reaction; IV Status: Completed infusion jr10 17:44 Drug: NS 0.9% 500 ml Route: IV; Rate: bolus; Site: right forearm; iw 18:10 Follow up: Response: No adverse reaction; IV Status: Completed infusion jr10 Outcome: 17:42 Discharge ordered by . rn 18:35 Discharged to home ambulatory. jr10 18:35 Condition: improved 18:35 Discharge instructions given to patient, Instructed on discharge instructions, follow up and referral plans. Demonstrated understanding of instructions, follow-up care. 18:35 Patient left the ED. jr10 Signatures: Leslie Guzman ds1 Oneyda Peter RN RN iw Ke Felipe MD MD rn Acob, Cheryl, RN RN ca1 Jennifer Espinoza, SAVANNA RN jr10
[2020-03-23] MEDS ORDERED: NA CHLORIDE 0.9% 500 ML ONE (17:51)
--- NOTE | 2020-03-24 12:24 | EKG ---
Test Date: 2020-03-23 Test Time: 16:59:06 [employer]: QASIM MEASUREMENT RESULTS: Intervals: Rate: 58 [place]: 276 QRSD: 96 QT: 436 QTc: 428 [place]: P: 60 [place]: 276 QRS: -40 T: 54 INTERPRETIVE STATEMENTS: Sinus bradycardia with 1st degree AV block Left axis deviation Minimal voltage criteria for LVH, may be normal variant Abnormal ECG Compared to ECG 09/25/2019 13:40:58 Left ventricular hypertrophy now present Sinus rhythm no longer present Atrial premature complex(es) no longer present Left bundle-branch block no longer present Electronically Signed On 03-24-20 12:22:44 CDT by Erasto Winn
[2020-03-25 20:57] VITALS: TEMP 97.8
[2020-03-25 20:59] VITALS: BP 149/77; O2SAT 96
== END 2020-03-23 18:35 | disposition home or self-care (01) ==
LOC: ER 15:43
DX: I95.1 Orthostatic hypotension (principal); Z88.6 Allergy status to analgesic agent; Z85.46 Personal history of malignant neoplasm of prostate
CPT/HCPCS: 93005; 85025; 80048; 36415; 80076; 83690; 84145; J7040; J7030; 96360; 99283

== ENCOUNTER 2025-04-22 17:03 | Emergency (ER) | payer OTHER ==
--- OUTSIDE RECORDS SUMMARY | 2025-04-22 17:06 | XMS REPORT | Continuity of Care Document ---
Author Name Unknown Address [address] [facility]. [address] [place] [address] [facility] Address [address] [facility] [place] [address] Care Team Providers Care Manager Online Name Role Phone Tammie Soriano Attending Clinician [phone] KAREN Attending Clinician Unavailable OWENS_T Attending Clinician Unavailable GAYLORD_S Attending Clinician Unavailable David_Mihai Attending Clinician Unavailable Doctor Unassigned, [place] Attending Clinician U aby De Oliveira RN, Marta Torres Attending Clinician Unavailab monica Eng, Adc Fam Pob I Attending Clinician Unavailab Eddie Bueno Attending Clinician EDDIE GOLDBERG Attending Clinician Unavailable KAREN Admitting Clinician Unavailable KANE_Brian Admitting Clinician Unavailable GAYLORMiroslava_S Admitting Clinician Unavailable Anthony Admitting Clinician Unavailable Payers Payer Name Policy Type Policy Number Effective Date Expirati on Date Source [employer] (MEDICARE REPLACEMENT HMO) [id number] 2020 00:00:00 Problems Condition Name Condition Details Condition Category Status Onset Date Resolution Date Last Treatment Date Treating Clinician Comments Source 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 Active 12-23 00:00: 00 [facility] Allergies, Adverse Reactions, Alerts Allergy Name Allergy Type Status Severity Reaction(s) Onset Date Inactive Date Treating Clinician Comments Source Butorpha nol Tartrate Propensi ty to adverse reaction s Active Unknown - See comments 12-21 00:00: 00 [facility] BUTORPHA NOL TARTRATE DRUG INGREDI Active Unknown-Cmnt 12-21 00:00: 00 [facility] Stadol Drug Allergy Active [facility] Social History Social Habit Start Date Stop Date Quantity Comments Source Exposure to SARS-CoV-2 (event) Not sure [facility] Sex Assigned At 1950 00:00:00 1950 00:00:00 [facility] Smoking Status Start Date Stop Date Source Unknown if ever smoked [facility] Medications Ordered Medication Name Filled Medication Name Start Date Stop Date Current Medication? Ordering Clinician Indication Dosage Frequency Signature (SIG) Comments Components Source metoprolol succinate XL 25 mg 24 hr tablet 12-21 16:52: 00 Yes 25mg Take 25 mg by mouth daily. [facility] losartan 50 mg tablet 12-21 16:52: 00 Yes 50mg Take 50 mg by mouth daily. [facility] escitalopra m oxalate (LEXAPRO) 10 mg tablet 12-21 16:52: 00 Yes 10mg Take 10 mg by mouth daily. [facility] zolpidem (AMBIEN) 5 mg tablet 12-21 16:52: 00 Yes 5mg Take 5 mg by mouth at bedtime as needed for Insomnia. [facility] gabapentin (NEURONTIN) 600 mg tablet 12-21 16:46: 30 Yes 1200mg Take 1,200 mg by mouth 3 (three) times daily. [facility] cyanocobala min, vitamin B-12, (PHYSICIANS EZ USE B-12) 1,000 mcg/mL injection 12-21 16:46: 30 Yes Inject as directed once every month. [facility] traZODONE (DESYREL) 50 mg tablet 12-21 16:46: 30 Yes 50mg Take 50 mg by mouth at bedtime. Taking 2-3 tablets nightly [facility] atorvastati n 40 mg tablet 12-21 16:46: 30 Yes 40mg Take 40 mg by mouth at bedtime. [facility] aspirin 81 mg EC tablet 12-21 16:46: 30 Yes 81mg Take 81 mg by mouth daily. [facility] metoprolol succinate XL 25 mg 24 hr tablet 12-21 11:52: 00 Yes 25mg Take 25 mg by mouth daily. [facility] losartan 50 mg tablet 12-21 11:52: 00 Yes 50mg Take 50 mg by mouth daily. [facility] escitalopra m oxalate (LEXAPRO) 10 mg tablet 12-21 11:52: 00 Yes 10mg Take 10 mg by mouth daily. [facility] zolpidem (AMBIEN) 5 mg tablet 12-21 11:52: 00 Yes 5mg Take 5 mg by mouth at bedtime as needed for Insomnia. [facility] aspirin 81 mg EC tablet 12-21 11:46: 30 Yes 81mg Take 81 mg by mouth daily. [facility] gabapentin (NEURONTIN) 600 mg tablet 12-21 11:46: 30 Yes 1200mg Take 1,200 mg by mouth 3 (three) times daily. [facility] cyanocobala min, vitamin B-12, (PHYSICIANS EZ USE B-12) 1,000 mcg/mL injection 12-21 11:46: 30 Yes Inject as directed once every month. [facility] traZODONE (DESYREL) 50 mg tablet 12-21 11:46: 30 Yes 50mg Take 50 mg by mouth at bedtime. Taking 2-3 tablets nightly [facility] atorvastati n 40 mg tablet 12-21 11:46: 30 Yes 40mg Take 40 mg by mouth at bedtime. [facility] testosteron e 20.25 mg/1.25 gram (1.62 %) gel pump 2016-07 00:00: 00 Yes [id number] 60.75mg Apply 3 Pumps to area(s) daily. [facility] Insulin Detemir 100 unit/mL (3 mL) injection 2016-07 00:00: 00 Yes 15U inject 15 Units under the skin 2 (two) times daily. [facility] metformin hcl 1000 mg tablet metformin hcl 1000 mg tablet Yes [facility] ropinirole hcl 3 mg tablet ropinirole hcl 3 mg tablet Yes [facility] finasteride 5 mg tablet finasteride 5 mg tablet Yes [facility] trazodone hcl 100 mg tablet trazodone hcl 100 mg tablet Yes [facility] venlafaxine hcl er 75 mg capsule er 24 hr venlafaxine hcl er 75 mg capsule er 24 hr Yes [facility] PRALUENT 150 MG/ML SOLN AUTO INJ PRALUENT 150 MG/ML SOLN AUTO INJ Yes [facility] pantoprazol e sodium [address] pantoprazol e sodium [address] Yes [facility] nitroglycer in 0.4 mg tab sublingual nitroglycer in 0.4 mg tab sublingual Yes [facility] midodrine hcl 10 mg tablet midodrine hcl 10 mg tablet Yes [facility] methocarbam ol 500 mg tablet methocarbam ol 500 mg tablet Yes [facility] lidocaine 5 % patch lidocaine 5 % patch Yes [facility] gabapentin 400 mg capsule gabapentin 400 mg capsule Yes [facility] fludrocorti sone acetate 0.1 mg tablet fludrocorti sone acetate 0.1 mg tablet Yes [facility] ELIQUIS 2.5 MG TABLET ELIQUIS 2.5 MG TABLET Yes [facility] Procedures Procedure Date / Time Performed Performing Clinicia n Source REFERRAL- REQUEST/RESPONSE 2021-04-15 05:01:00 Doctor Unassigned, [place] [facility] Encounters Start Date/Time End Date/Time Encounter Type Admission Type Attending [facility] Care Department Encounter ID Source 2025-03-20 11:00:00 2025-03-20 12:00:00 Initial D2Me Tammie Riveras [id number] [facility] 2021-04-15 00:00:00 2021-04-15 00:00:00 Orders Only Doctor Unassigned, [place] [facility] [id number] [facility] 2020-05-31 00:00:00 2020-05-31 00:00:00 Letter (Out) Yennifer [facility] [id number] 2020-05-31 00:00:00 2020-05-31 00:00:00 Letter (Out) Yennifer, [facility] [id number] [facility] 2020-05-30 09:53:53 2020-05-30 10:13:53 Laboratory Only Lab, [facility] [address] [id number] 2020-05-30 09:53:53 2020-05-30 10:13:53 [facility] [address] [facility] [id number] [facility] 2020-05-30 09:40:00 2020-05-30 09:40:[address] [facility] [id number] [facility] Notes Date/Time Note Provider Source 2025-03-20 11:00:00 ASSESSMENT SUMMARY GERALDINE CASAREZ is a 75 year old man seen today by [facility] for a [facility]. 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 toiehofcH97.1 - Orthostatic wrtucxizkilD53.0 - Presence of cardiac nmrxzwfteQ58.9 - Obesity, kiyoritvkqxD02.30 - Body mass index [BMI] 30.0-30.9, wagpsH18.9 - Unspecified abnormalities of gait and ozpuutsnU91.81 - History of hezjrnhP09.10 - Post-traumatic stress disorder, jzrsazdsflmW85.5 - Hyperlipidemia, unspecified MEDICATION RECONCILIATION Did you review the patient's prescription and non-prescription drugs, vitamins, herbal remedies, and other supplements, AND is the accompanying medication list documented in the medical record?: Yes GENERAL ASSESSMENT* Feet: 6 Inches: 5 WEIGHT (pounds): 260 <hr> BODY MEASUREMENTS:<em>Patient Height in centimeters</em>: 195.58<em>Patient Weight in kilograms</em>: 117.94<em>Patient Body Mass Index</em>: 30.83 Dx: E66.9 - Obesity, unspecified Notes for E66.9: - Patient Body Mass Index: 30.83 - Unable to exercise due to CHF and CAD with angina - Lost 90 lbs but has remained stable weight over the last 2 years Dx: Z68.30 - Body mass index [BMI] 30.0-30.9, adult Notes for Z68.30: - Patient Body Mass Index: 30.83 - Unable to exercise due to CHF and CAD with angina - Lost 90 lbs but has remained stable weight over the last 2 years Do you exercise regularly?: No Physical activity level during a typical week: - Unable to exercise due to CHF and CAD with angina SUBSTANCE USE - Smoking History The patient denies a history of tobacco use Smoking Notes: Previously smoked for about 9 years, quit in 1970 SCREENING - Depression Previously diagnosed with major depressive disorder?: Yes Is the patient currently on antidepressant medication?: Yes PHQ-2 Assessment Little interest or pleasure in doing things?: Not at all (0) Feeling down, depressed, or hopeless?: Not at all (0) PHQ-9 Assessment Trouble falling or staying asleep, or sleeping too much?: Nearly every day (+3) Feeling tired or having little energy?: Nearly every day (+3) Poor appetite or overeating?: Not at all (0) Feeling bad about yourself, or that you are a failure or have let yourself or your family down?: Not at all (0) Trouble concentrating on things, such as reading the newspaper or watching television?: Not at all (0) Moving or speaking so slowly that other people could have noticed? Or so fidgety or restless that you have been moving a lot more than usual?: Not at all (0) Thoughts that you would be better off , or thoughts of hurting yourself in some way?: Not at all (0) PHQ9 Score: 6 Had > 1 episode of major depression?: No Previously recorded diagnosis of bipolar disorder, schizoaffective disorder, or schizophrenia?: No / Unknown Dx: F43.10 - Post-traumatic stress disorder, unspecified Additional Diagnosis Notes: Member with PTSD after serving in the [place] war. Symptoms previously were incessantly checking the perimeters of his home and checking that doors were locked, difficulty sleeping, nightmares. Participated in group therapy, was helpful. He's had significant improvement of symptoms over the years. Taking effexor as prescribed. Asymptomatic since 2018. SCREENING - Fall Risk Have you fallen in the past year?: Yes Do you have problems getting around?: Yes Dx: R26.9 - Unspecified abnormalities of gait and mobility Notes for R26.9: Repeated falls related to hypotensive episodes. Also with significant neuropathy of feet. Uses cane, walker, wheelchair. Has multiple specialists and PCP managing. Had recent med change by vascular specialist. Dx: Z91.81 - History of falling Notes for Z91.81: Repeated falls related to hypotensive episodes. Also with significant neuropathy of feet. Uses cane, walker, wheelchair. Has multiple specialists and PCP managing. Had recent med change by vascular specialist. SCREENING - DME & Home Health Does the patient use any durable medical equpiment?: Yes Walker: Yes Raised Toilet Seat: Yes Shower Chair: Yes Cane: Yes Wheelchair: Yes Does the patient use home health, physical therapy or fpc services?: Yes Home health: Yes New orders, referrals, or any other assistance with DME or home health needed at this time?: Yes CARDIOVASCULAR - Heart Failure, Pulmonary Hypertension, and Cardiomyopathy Previously diagnosed with heart failure?: Yes Dx: I50.9 - Heart failure, unspecified Notes for I50.9: - Patient with CHF with concurrent arrhythmia (pacemaker in place) and CAD - No ecent exacerbations or hospitalizations: - Compliant with ASA. Unable to tolerate BB. Not on MARLYN-I/ARB. - Asymptomatic of fluid retention, SOB - Managed by cardiology CARDIOVASCULAR - Coronary Artery Disease/Angina Previously recorded diagnosis of coronary artery disease?: Yes Previously recorded diagnosis of angina?: Yes Does the patient currently take isosorbide mononitrate, isosorbide dinitrate, or ranexa for treatment of angina?: Yes Statin status: Not on a statin regimen Angina Notes: On Praluent. Unable to tolerate statin. 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 Aware of ER precautions. - Unable to tolerate statin, takes Praluent as prescribed - Takes ASA 81mg daily - Managed by cardiology.ACTION: Ensure patient is on antiplatelet therapy, or has a contraindication CARDIOVASCULAR - Arrhythmia Diagnosed with one of the following arrhythmias?: Atrial Fibrillation Does patient have a cardiac pacemaker?: Yes Does patient get palpitations?: Yes Dx: I48.91 - Unspecified atrial fibrillation Notes for I48.91: - Pt with atrial fibrillation, pacemaker in place - Has concurrent postural hypotension - Taking eliquis as prescribed, unable to tolerate metoprolol (caused very low BP) - Managed by cardiology Dx: Z95.0 - Presence of cardiac pacemaker Notes for Z95.0: - Pt with atrial fibrillation, pacemaker in place - Managed by cardiology RENAL - Chronic Kidney Disease Does patient carry a diagnosis of chronic kidney disease?: No Two basic metabolic panels by > 3 months showing an eGFR < 90?: Yes Does the patient have evidence of albuminuria?: No Chronic Kidney Disease Notes: uacr ordered for member ⭐ENDOCRINE - Diabetes (A1c + Eye + Kidney) Diabetes Diagnosis: Type 2 Are you interested in getting an updated [facility] Lab Tests?: Requests Support How would member like to complete their outstanding labwork?: In-Home Test KIT ENDOCRINE - Diabetes Diabetes Diagnosis: Type 2 Statin status: Not on a statin regimen The patient has the following medical complication secondary to diabetes: Hyperlipidemia: Yes Dx: E11.69 - Type 2 diabetes mellitus with other specified complication Notes for E11: - DM type 2 complicated by hyperlipidemia - Most recent A1C: 6.7 01/15/2024 - most recent LDL: 109 mg/dL 11/10/2016 - Pt compliant with medications for DM type 2: metformin - Pt compliant with statin regimen: Praluent, unable to tolerate statin - Followed by PCP - New glucometer ordered for patient today Dx: E78.5 - Hyperlipidemia, unspecified Notes for E78.5: - Compliant with Praluent as prescribed - Managed by PCP COMMON DIAGNOSES Statin status: Not on a statin regimen Dx: E78.5 - Hyperlipidemia, unspecified Notes for E78.5: - Compliant with Praluent as prescribed - Managed by PCP Dx: I95.1 - Orthostatic hypotension Additional Diagnosis Notes: - Ongoing for 15 years - Managed by vascular specialist - Taking as prescribed: midrodone - Reports worsened by taking metoprolol, no longer taking - Multiple recent falls r/t to hypotensive episodes - Asymptomatic during visit Dx: 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 Takes as prescribed for this condition: gabapentin His feet are most significantly affected. Managed by PCP. Does not have highway painter helper at this time, advised to get referral for one at his upcoming PCP appt. 2024 APPOINTMENT CPT CODE Please indicate how this visit was conducted: Video Please select the video platform used during the visit: [employer] Video Room Please record the total amount of time you spent on this patient visit- Total time includes time spent on preparation, speaking with the patient, documentation, and post-visit coordination of care - This is limited to time spent ON THE DATE OF SERVICE (e.g. does not include time spent on days prior to or after the date of service) 40 or more minutes Tammei Soriano [facility] Medical
[2025-04-22 17:34] LABS: Absolute Lymphocytes (CBC) 1.6 K/uL (0.7-4.9); Hematocrit 40.5 % (39.6-49.0); Hemoglobin 13.3 g/dL (13.6-17.9); MCH 28.8 pg (27.0-35.0); MCHC 32.9 g/dL (32.0-36.0); MCV 87.5 fL (80-100); MPV 8.4 fL (7.6-11.3); Nucleated RBC Absolute Count 0.0 (0-0); Nucleated Red Blood Cells % 0.1 % (0-0); RBC Red Blood Cell Count 4.62 M/uL (4.33-5.43); White Blood Count 6.10 thou/uL (4.3-10.9)
[2025-04-22 17:41] LABS: PT Prothrombin Time 11.9 SECONDS (10-13.0); Protime INR 1.05
[2025-04-22 17:59] LABS: ALT/SGPT 19 U/L (16-61); AST/SGOT 12 U/L (15-37); Albumin 3.0 g/dL (3.4-5.0); Albumin/Globulin Ratio 0.8 (1.1-1.8); Alkaline Phosphatase 66 U/L (45-117); Anion Gap 7.7 mEq/L (5.0-15.0); BUN Blood Urea Nitrogen 19 mg/dL (7-18); Globulin 3.7 g/dL (2.3-3.5); Glucose Level 86 mg/dL (74-106); Magnesium 2.0 mg/dL (1.6-2.4); NT PRO-BNP 103 pg/mL (<450); Potassium 3.7 mEq/L (3.5-5.1); Troponin High Sensitivity 8.6 pg/mL (<58.9)
[2025-04-22 18:10] LABS: Bilirubin Indirect, Calculated 0.0 mg/dL (0.2-0.8)
--- NOTE | 2025-04-22 18:10 | RAD REPORT ---
EXAMINATION: ONE VIEW CHEST XR CLINICAL INDICATION: Male, 75 years old.,hypotension TECHNIQUE: Frontal chest projection is submitted. Examination is limited by patient positioning and t echnique. COMPARISON: 02/08/2025 FINDINGS: The lungs are well inflated with near-complete improvement of right basilar medial vascular/interstit ial prominence. No pneumothorax or sizable effusion. The heart is normal in size. Mediastinal contours are unchanged with sequelae of CABG and left atrial appendage occlusion. Left chest wall pac er in place. IMPRESSION: No acute intrathoracic abnormalities.
[2025-04-22] MEDS ORDERED: NA CHLORIDE 0.9% 500 ML ONE (18:11)
--- NOTE | 2025-04-22 18:18 | EDPHYS ---
Physician Documentation [facility] Name: Ramana Hess Age: 75 yrs Sex: Male : 1950 Arrival Date: 04/22/2025 Time: 17:03 Bed 2 Private MD: ED Physician Everett Carbone HPI: 04/22 18:30 This 75 yrs old Male presents to ER via EMS with complaints of Hypotension. ms3 18:30 75-year-old male with past medical history of arthritis, hyperlipidemia, hypertension, ms3 peripheral neuropathy presents to the emergency department via [facility] for hypotension. On EMS arrival patient had systolic blood pressure in the 80s. 600 mL of normal saline was administered with improvement of patient's blood pressure to 94/40. patternmaker all around revealed a paced rhythm. Patient states he has had history of hypotension and his blood pressure typically improves with IV fluids. Patient endorses chronic diarrhea. Patient denies nausea, vomiting, pain.. Historical: - Allergies: 17:23 Metaxalone; bp 17:23 butorphanol; bp 17:23 Stadol; bp - PMHx: 17:23 Arthritis; High Cholesterol; [place]; Hyperlipidemia; Hypertension; PERIPHERAL NEUROPATHY; bp Diabetes - IDDM; hypotension (Diabetes - NIDDM); Seizures; Diabetes - NIDDM; Depression; Atrial fibrillation; CAD; TIA; - PSHx: 17:23 pacemaker; bp - Immunization history:: Adult Immunizations up to date. - Infectious Disease History:: Denies. - Social history:: Smoking status: Patient denies any tobacco usage or history of. ROS: 18:30 Constitutional: Negative for fever, and chills. Cardiovascular: Negative for chest ms3 pain, and palpitations. Respiratory: Negative for shortness of breath, cough, wheezing, and pleuritic chest pain, 18:30 MS/Extremity: Negative for injury and deformity, Skin: Negative for injury, rash, and discoloration, 18:30 Abdomen/GI: Positive for diarrhea, Negative for abdominal pain, nausea and vomiting, Exam: 18:30 Constitutional: This is a well developed, well nourished patient who is awake, alert, ms3 and in no acute distress. Cardiovascular: Regular rate and rhythm with a normal S1 and S2. No gallops, murmurs, or rubs. Normal PMI, no JVD. No pulse deficits. Respiratory: Lungs have equal breath sounds bilaterally, clear to auscultation and percussion. No rales, rhonchi or wheezes noted. No increased work of breathing, no retractions or nasal flaring. Abdomen/GI: Soft, non-tender, with normal bowel sounds. No distension or tympany. No guarding or rebound. No evidence of tenderness throughout. Skin: Warm, dry with normal turgor. Normal color with no rashes, no lesions, and no evidence of cellulitis. MS/ Extremity: Pulses equal, no cyanosis. Neurovascular intact. Full, normal range of motion. 18:33 ECG was reviewed by the Attending Physician. ms3 Vital Signs: 17:22 BP 92 / 40; Pulse 86; Resp 14; Temp 98; Pulse Ox 94% ; bp 18:15 BP 112 / 49; Pulse 77; Resp 14; Pulse Ox 93% ; bp 18:30 BP 127 / 57; Pulse 72; Resp 16; Pulse Ox 95% ; db 20:26 BP 133 / 64; Pulse 73; Resp 16; Pulse Ox 99% on R/A; jb4 MDM: 17:08 Medical Screening Exam initiated ms3 18:30 Differential Diagnosis PA versus dehydration versus orthostatic hypotension. Data ms3 reviewed: vital signs, nurses notes, lab test result(s), EKG, radiologic studies, and as a result, I will Patient request to be transferred to the [facility]. Consideration of Admission/Observation Will transfer patient. I considered the following discharge prescriptions or medication management in the emergency department Medications were administered in the Emergency Department. See MAR. Independent interpretation of the following test(s) in the Emergency Department EKG: See my EKG interpretation above X-Ray: My interpretation is Chest x-ray image reviewed by me does not reveal lung consolidation. Counseling: I had a detailed discussion with the patient and/or guardian regarding the historical points, exam findings, and any diagnostic results supporting the discharge/admit diagnosis, lab results, radiology results, Will transfer patient at his request to [facility]. ED course: Discussed need for observation with patient. Patient request transfer to AR. Will plan for transfer to AR. 20:05 Data reviewed: vital signs, nurses notes, lab test result(s). ED course: I took over tt7 care of this patient at shift change at 1900, this is a 75-year-old male with episodes of recurrent syncope who presented with symptoms of near syncope, he was hypotensive with blood pressure in the 80s of systolic initially, was provided with IV fluids and is now normotensive, he is requesting transfer to the AR as he has received medical workup for his recurrent syncopal episodes at that facility, he will require observation or inpatient admission, transfer process to the AR has been initiated and I am awaiting acceptance, cardiac monitoring was ordered due to the potential for conduction abnormality causing dysrythmia. I independently interpreted the patient's cardiac rhythm as electronically paced rhythm at a rate of 72 bpm on the brusher operator. 20:15 ED course: I discussed the case with Dr. Clifton at the AR including the patient's tt7 presentation, vital signs, laboratory studies, and EKG findings, after discussing the case he accepts the patient for transfer. 04/22 17:09 Order name: Basic Metabolic Panel; Complete Time: 18:16 ms3 04/22 17:09 Order name: CBC with Diff; Complete Time: 18:04 ms3 04/22 17:09 Order name: LFT's; Complete Time: 18:16 ms3 04/22 17:09 Order name: Magnesium; Complete Time: 18:16 ms3 04/22 17:09 Order name: NT PRO-BNP; Complete Time: 18:16 ms3 04/22 17:09 Order name: PT-INR; Complete Time: 18:04 ms3 04/22 17:09 Order name: Troponin HS; Complete Time: 18:16 ms3 04/22 17:48 Order name: Glucose, Ancillary Testing; Complete Time: 18:04 EDMS 04/22 17:09 Order name: XRAY Chest (1 view); Complete Time: 18:16 ms3 04/22 17:09 Order name: EKG; Complete Time: 17:09 ms3 04/22 17:09 Order name: Cardiac monitoring; Complete Time: 17:21 ms3 04/22 17:09 Order name: EKG - Nurse/Tech; Complete Time: 17:22 ms3 04/22 17:09 Order name: IV Saline Lock; Complete Time: 17:22 ms3 04/22 17:09 Order name: Labs collected and sent; Complete Time: 17:22 ms3 04/22 17:09 Order name: O2 Per Protocol; Complete Time: 17:22 ms3 04/22 17:09 Order name: O2 Sat Monitoring; Complete Time: 17:22 ms3 EC:33 Rate is 72 beats/min. Rhythm is regular. Right axis deviation noted. Clinical ms3 impression: Paced. Interpreted by me. Reviewed by me. Administered Medications: 18:14 Drug: NS 0.9% IV 500 ml 500 ml IV at 1 bolus once; to be given as a bolus over 30 bp minutes Volume: 500 ml; Route: IV; Rate: 1 bolus; Site: right forearm; Point of Care Testing: Blood Glucose: 17:40 Blood Glucose: 77 mg/dL; db Ranges: Critical Glucose Levels:Adult <50 mg/dl or >400 mg/dl <40 mg/dl or >180 mg/dl Disposition: 20:17 Co-signature as Attending Physician, Everett Carbone DO. tt7 Disposition Summary: 04/22/25 18:17 Transfer Ordered Notes: Transfer Location: [place] ms3 Reason: Higher level of care ms3 Condition: Stable ms3 Problem: new ms3 Symptoms: are unchanged ms3 Accepting Physician: Dr. Clifton(04/22/25 21:02) jb4 Diagnosis - Hypotension, unspecified ms3 - Syncope Near ms3 Forms: - Medication Reconciliation Form ms3 - SBAR form ms3 Signatures: Dispatcher [employer] Shiv Titus, RN RN jb4 Jeremy Kendrick, RN RN Aidan Price DO DO ms3 Evelin Fiore rv1 Everett Carbone DO DO tt7 Corrections: (The following items were deleted from the chart) 20:17 18:17 Dr devries rv1 21:02 20:17 Dr. Clifton rv1 jb4
--- NOTE | 2025-04-22 18:18 | ER ---
Nurse's Notes [facility] Name: Ramana Hess Age: 75 yrs Sex: Male : 1950 Arrival Date: 04/22/2025 Time: 17:03 Bed 2 Private MD: Diagnosis: Hypotension, unspecified;Syncope Near Presentation: 04/22 17:22 Chief complaint: EMS states: LOW BP AND NEAR-SYNCOPE. Coronavirus screen: At this time, bp the client does not indicate any symptoms associated with coronavirus-19. Ebola Screen: No symptoms or risks identified at this time. Initial Sepsis Screen: Does the patient meet any 2 criteria? No. Patient's initial sepsis screen is negative. Does the patient have a suspected source of infection? No. Patient's initial sepsis screen is negative. Risk Assessment: Do you want to hurt yourself or someone else? Patient reports no desire to harm self or others. Onset of symptoms is unknown. Care prior to arrival: Medication(s) given: Normal saline infusion, 1000 mL, IV initiated. 18 GA, in the right forearm, Glucose check: 148. 17:22 Method Of Arrival: EMS: [facility] bp 17:22 Acuity: [facility]NA 3 bp Triage Assessment: 17:23 General: Appears in no apparent distress. Behavior is calm, cooperative, appropriate bp for age. Pain: Denies pain. EENT: No deficits noted. Neuro: Level of Consciousness is awake, alert, obeys commands, Oriented to Appropriate for age Reports NEAR SYNCOPE. Cardiovascular: Rhythm is Respiratory: No deficits noted. GI: No signs and/or symptoms were reported involving the gastrointestinal system. : No signs and/or symptoms were reported regarding the genitourinary system. Derm: No deficits noted. Musculoskeletal: No deficits noted. Historical: - Allergies: 17:23 Metaxalone; bp 17:23 butorphanol; bp 17:23 Stadol; bp - PMHx: 17:23 Arthritis; High Cholesterol; [place]; Hyperlipidemia; Hypertension; PERIPHERAL NEUROPATHY; bp Diabetes - IDDM; hypotension (Diabetes - NIDDM); Seizures; Diabetes - NIDDM; Depression; Atrial fibrillation; CAD; TIA; - PSHx: 17:23 pacemaker; bp - Immunization history:: Adult Immunizations up to date. - Infectious Disease History:: Denies. - Social history:: Smoking status: Patient denies any tobacco usage or history of. Screenin:00 [facility] ED Fall Risk Assessment (Adult) History of falling in the last 3 months, db including since admission No falls in past 3 months (0 pts) Confusion or Disorientation No (0 pts) Intoxicated or Sedated No (0 pts) Impaired Gait No (0 pts) Mobility Assist Device Used No (0 pt) Altered Elimination No (0 pt) Score/Fall Risk Level 0 - 2 = Low Risk Oriented to surroundings, Maintained a safe environment. Abuse screen: Denies threats or abuse. Denies injuries from another. Nutritional screening: No deficits noted. Tuberculosis screening: No symptoms or risk factors identified. Assessment: 17:40 Reassessment: NOTIFIED DR. LIM OF PT GLUCOSE 75. PT PROVIDED SNACKS TO EAT. db 18:58 Reassessment: Patient appears in no apparent distress at this time. Patient and/or db family updated on plan of care and expected duration. Pain level reassessed. Patient is alert, oriented x 3, equal unlabored respirations, skin warm/dry/pink. General: Appears in no apparent distress. comfortable, Behavior is calm, cooperative. Neuro: Level of Consciousness is awake, alert, obeys commands, Oriented to person, place, time, situation. 20:00 Reassessment: Patient appears in no apparent distress at this time. Patient and/or jb4 family updated on plan of care and expected duration. Pain level reassessed. Patient is alert, oriented x 3, equal unlabored respirations, skin warm/dry/pink. 21:01 Reassessment: Patient appears in no apparent distress at this time. Patient and/or jb4 family updated on plan of care and expected duration. Pain level reassessed. Patient is alert, oriented x 3, equal unlabored respirations, skin warm/dry/pink. Pt transported to receiving facility via EMS. Vital Signs: 17:22 BP 92 / 40; Pulse 86; Resp 14; Temp 98; Pulse Ox 94% ; bp 18:15 BP 112 / 49; Pulse 77; Resp 14; Pulse Ox 93% ; bp 18:30 BP 127 / 57; Pulse 72; Resp 16; Pulse Ox 95% ; db 20:26 BP 133 / 64; Pulse 73; Resp 16; Pulse Ox 99% on R/A; jb4 Vitals: 20:26 Cardiac Rhythm Assessment Paced. 4 ED Course: 17:07 Patient arrived in ED. bd 17:08 Aidan Lim DO is Attending Physician. ms3 17:21 Jeremy Kendrick, RN is Primary Nurse. bp 17:23 Triage completed. bp 17:23 Arm band placed on. bp 17:24 Maintain EMS IV. Dressing intact. Good blood return noted. Site clean \T\ dry. Gauge \T\ bp site: 18 RFA. 17:58 XRAY Chest (1 view) In Process Unspecified. EDMS 18:26 initiated transfer to [facility], faxed chart to [place] ER as requested by transfer center.bd 18:59 Patient has correct armband on for positive identification. Bed in low position. Call db light in reach. Side rails up X2. Client placed on continuous cardiac and pulse oximetry monitoring. NIBP monitoring applied. quality assurance monitor final on. Pulse ox on. NIBP on. Pillow given. 19:35 Attending Physician role handed off by Aidan Lim DO tt7 19:35 Everett Carbone DO is Attending Physician. tt7 20:[address] Galvez to [facility] ER. rv1 21:01 Provided Education on: need for transfer. jb4 21:01 No provider procedures requiring assistance completed. Patient transferred, IV remains jb4 in place. Administered Medications: 18:14 Drug: NS 0.9% IV 500 ml 500 ml IV at 1 bolus once; to be given as a bolus over 30 bp minutes Volume: 500 ml; Route: IV; Rate: 1 bolus; Site: right forearm; Medication: 21:01 VIS not applicable for this client. jb4 Point of Care Testing: Blood Glucose: 17:40 Blood Glucose: 77 mg/dL; db Ranges: Outcome: 18:17 ER care complete, transfer ordered by . ms3 21:01 Transferred by ground EMS EMS. to [facility] Transfer form jb4 completed. X-rays sent w/ patient. 21:01 Condition: stable 21:01 Discharge instructions given to patient, Instructed on the need for transfer, Demonstrated understanding of instructions, 21:02 Patient left the ED. jb4 Signatures: Dispatcher [employer] EDMS Minoo Hyatt bd Shiv Burciaga RN SAVANNA jb4 Jeremy Kendrick, RN RN bp Aidan Lim DO DO ms3 Phyllis Medina, RN RN db Evelin Fiore rv1 Everett Carbone DO DO tt7
[2025-04-22 21:17] VITALS: TEMP 98
[2025-04-22 21:21] VITALS: BP 133/64; O2SAT 99
== END 2025-04-22 21:02 ==
LOC: ER 17:03
DX: I95.9 Hypotension, unspecified (principal); R55 Syncope and collapse; E78.5 Hyperlipidemia, unspecified; I10 Essential (primary) hypertension; G62.9 Polyneuropathy, unspecified; E11.9 Type 2 diabetes mellitus without complications; I25.10 Atherosclerotic heart disease of native coronary artery without angina pectoris; I48.11 Longstanding persistent atrial fibrillation; E78.00 Pure hypercholesterolemia, unspecified; Z86.73 Personal history of transient ischemic attack (TIA), and cerebral infarction without residual deficits
CPT/HCPCS: 93005; 85025; 80048; 36415; 83735; 85610; 82947; 80076; 84484; 83880; 71045; 99285; J7040